=== PATIENT | female | born 1960 | race Caucasian/White ===

== ENCOUNTER 2019-12-11 00:53 | Outpatient (CLI) | payer BC, SELFPAY ==
[2019-12-11 18:38] LABS: SARS-CoV-2 RNA PCR Negative
== END 2019-12-11 00:54 | disposition home or self-care (01) ==
LOC: ANHCOVIDDT 00:54
PROVIDERS: PCP Family Medicine; Visit Provider Orthopaedic Surgery
DX: Z01.812 Encounter for preprocedural laboratory examination (principal); Z20.828 Contact with and (suspected) exposure to other viral communicable diseases
CPT/HCPCS: 87635; C9803; U0003

== ENCOUNTER 2019-12-13 01:37 | Day surgery (SDC) | payer BC, SELFPAY ==
[2019-12-04 09:50] VITALS: BMI 28.3
[2019-12-13] VITALS (7 sets, daily range): BP systolic 104–130; BP diastolic 66–82; PULSE 70–120; RESP 10–16; TEMP 36.7–36.8; O2SAT 92–96
[2019-12-13] MEDS: LACTATED RINGERS 1,000 ML 30 ML IV CONT ×2 (06:30→08:32)
[2019-12-13] MEDS: ACETAMINOPHEN 500 MG TABLET 1000 MG PO (06:34)
[2019-12-13] MEDS: KETOROLAC 15 MG/ML VIAL (*BKC) IV PUSH (06:35)
--- NOTE | 2019-12-13 07:11 | WPDANESEPPF ---
Anes - Initial Pre Proc Eval Procedure: Operation Date: 12/13/19 07:30 Proposed Procedures p Left Shoulder Arthroscopic Subacromial Decompression, Proceed As Indicated - Adonis Traore MD Date/Time: 12/13/19 07:11 Surgeon: Adonis Traore MD Pre Op Diagnosis: Impingement Syndrome and Tendonitis Left Shoulder Patient Data Age: 59 Gender: F Height: 5 ft 3 in Weight: 73.9 kg Last Vital Signs Temp 36.7 C 12/13/19 06:17 Pulse 70 12/13/19 06:17 Resp 16 12/13/19 06:17 BP 130/68 12/13/19 06:17 Pulse Ox 95 12/13/19 06:17 Allergies Allergy/AdvReac Type Severity Reaction Status Date / Time Gadolinium-Containing Allergy Severe Hives Verified 12/13/19 07:08 Contrast Medi minocycline Allergy Severe Hives Verified 12/13/19 07:08 tetracycline Allergy Mild HIVES Verified 12/13/19 07:08 Home Medications Medication Instructions Recorded Confirmed Type ascorbic acid (vitamin C) 1,000 mg 1 gm PO DAILY 04/19/19 12/04/19 History tablet fluoxetine 10 mg capsule 30 mg PO DAILY cap 04/19/19 12/04/19 History vufothmwmjfu-kihudqwe-bggke acid 1 cap PO DAILY 04/19/19 12/04/19 History 400 mcg-vitamin K 80 mcg capsule omega-3 1,050 yu-iux-ues-dpa-fish 1 cap PO DAILY 04/19/19 12/04/19 History oil 1,200 mg capsule vitamin E 400 unit capsule 400 unit PO DAILY 04/19/19 12/04/19 History bupropion HCl 75 mg tablet 75 mg PO BID tablet 08/16/19 12/04/19 History estradiol 1 mg tablet 1.5 mg PO DAILY tablet 08/16/19 12/04/19 History naproxen 375 mg tablet,delayed 375 mg PO BID PRN #60 tablet 08/16/19 12/04/19 Rx release levothyroxine 25 mcg tablet 25 mcg PO DAILY #90 tablet 10/21/19 12/04/19 Rx phentermine 37.5 mg capsule 37.5 mg PO DAILY #30 cap 11/14/19 12/04/19 Rx cyanocobalamin (vitamin B-12) 1,000 mcg PO DAILY 12/04/19 12/04/19 History [Vitamin B-12] magnesium 1 cap PO DIRECTED PRN 12/04/19 12/04/19 History Patient hx anesthesia problems: none Family hx anesthesia problems: none PMFSH Past Medical History Medical History Cervical stenosis of spinal canal Elevated TSH History of endometriosis cyst on ovary Hyperlipidemia Surgical History Surgical History History of back surgery History of discectomy C4-C6 - with Fusion History of hysterectomy History of tonsillectomy Family History Family History Mother Diabetes mellitus Carcinoma of colon Sibling Diabetes mellitus Family history of lymphoma Father Hypertension Acute myocardial infarction Grandparent Family history of rheumatoid arthritis Acute myocardial infarction Social History Social History Years smoked: 7 Smoking status: Current every day smoker Tobacco type: cigarettes Second hand tobacco smoke exposure: No Smoking end date: 07/15/99 Alcohol intake: current Drinks per week: 6 Spiritual care concerns: No Anes - Eval Final PreProcedure Day of Procedure 12/13/19 07:11 Patient weight: overweight Heart: regular rate and rhythm Lungs: decreased breath sounds Airway: Mallampati scale class II Neurological: alert and oriented Last oral intake: >/= 8 hours ASA classification: III Emergent: no Anesthetic plan: proceed Anesthesia type and monitoring: general ETT and standard monitoring Informed Consent: The patient's anesthetic plan and its attendant risks and benefits were discussed with the patient/family/POA. Questions were solicited and answers provided to the satisfaction of the patient/family/POA.
--- NOTE | 2019-12-13 07:23 | WPDHPUPDATE1 ---
History and Physical Update Update Date/Time: 12/13/19 07:23 History and Physical has been reviewed, including an updated exam of the patient. There are NO changes in the patient's condition. Risks, benefits, and alternatives have been discussed and questions answered. Patient agrees to proceed with procedure.
--- NOTE | 2019-12-13 07:30 | WPDANESPNB ---
Anes - Peripheral Nerve Block Date/Time: 12/13/19 07:30 I have discussed with the patient/family/POA the placement of a peripheral nerve block for post-operative pain management, including associated risks, benefits, complications, and side effects. Alternative methods of post-operative analgesia were detailed. Questions were solicited and answers provided to the satisfaction of the patient/family/POA. Time-Out: A pre-procedural Time-Out was completed immediately before starting the procedure and confirmed: Patient Identification, Site, Procedure, Patient Position and the Availability of Requisite Equipment. Clinical Indications: Acute post-operative pain management requested by the operative surgeon. Nerve Block Insertion Note Anes-nerve block: interscalene left Needle: 22 gauge, stimulating, insulated echogenic needle. Needle length: 50 mm Technique: nerve stimulation lost at (mA) (0.3) and ultrasound Technique comment: mid2mg [id number] Injectate: bupivacaine 0.5% with epi 5 mcg/ml (30ml) and dexamethasone (mg) (4) Observations: tolerated well Complications: none Procedure start time:: 721 Procedure end time:: 729
[2019-12-13] MEDS: ceFAZolin 2 GM/D5W 50 ML 2 GM/50 ML BAG IVPB (07:33)
[2019-12-13] MEDS: METOPROLOL TARTRATE INJ 5 MG/5 ML VIAL 3 MG IV PUSH (10:12)
--- NOTE | 2019-12-13 13:41 | SUR.PHASEII ---
Patient informed staff that her white cloth (fabric) mask was missing. Staff searched the linens, stretchers, patient belongings and called the OR staff to look in OR 7 for it as well. Radiographer Technologist came to the patient's room and spoke to her about the misplacement of the mask as well. RN took down name and phone number of patient if it happens to get found. An incident report was filed also.
--- NOTE | 2019-12-14 10:24 | P.OP_ITS ---
Procedure Note - Detailed Date of procedure: 12/13/19 Pre-op diagnosis: Impingement Syndrome and Tendonitis Left Shoulder Post-op diagnosis: other (1. Impingement syndrome shoulder 2. Anterior labral degenerative tear.) Procedure performed: 1. Arthrosocopic labral debridement. 2. Arthroscopic subacromial decompression. Description of procedure: Arthroscopic debridement of a degenerative anterior labral tear and minimal chondroplasty. Evidence of significant subacromial impingement and bursitis. Subacromial decompression performed with complete bursectomy and acromioplasty. The remaining soft tissues and articular cartilage was normal other than hyperemia of the anterior cuff and biceps, consistent with impingement. Anesthesia: GETA and regional Surgeon: Adonis Traore MD Centrifugal Casting Machine Operator: Jackie Frankel PA-C Estimated blood loss (mL): 10 Complications: None Condition: stable Disposition: PACU Findings: Brief history: The patient complained of persistent pain with overhead and reaching activities. Pain persisted despite physical therapy and cortisone injections. Operative details: Patient was given an interscalene block in the holding area. Preoperative antibiotics were given. The patient was brought to the operating room. Careful positioning in the beach chair position was accomplished. The head neck were carefully positioned. The shoulder was examined. The shoulder w as prepped and draped in the usual sterile fashion. Standard posterior and anterior arthroscopic portals were established. The shoulder was inspected. The glenohumeral cartilage was normal. The anterior labrum showed degenerative tearing and some mild fraying of the anterior central margin of the glenoid cartilage. Gentle debridement was performed. The rotator cuff and biceps tendon showed hyperemia but no significant degeneration, tendinosis, or tearing. The subscapularis was also noted to be intact and appeared normal with the biceps sling. Attention was turned to the subacromial space. A complete bursectomy was performed. The bursa was significantly thickened and appeared pathologic. Evidence of fraying on the anterior rotator cuff and impingement on the coracoacromial ligament was observed. An accessory lateral portal was created. The acromion was clearly visualized. The coracoacromial ligament was released. Careful acromioplasty was performed utilizing views from both lateral and posterior. Loose bone fragments were carefully irrigated from the joint. The arthroscopic instruments were removed. The wounds were closed with interrupted 3-0 Monocryl suture followed by Steri-Strips. A sterile dressing was applied with a sling. The patient was extubated and brought to the recovery room in stable condition. There were no complications.
== END 2019-12-13 11:32 | disposition home or self-care (01) ==
PROVIDERS: PCP Family Medicine; Visit Provider Orthopaedic Surgery
PROC: (CPT 29805; principal; 2019-12-13 07:30)
DX: M75.42 Impingement syndrome of left shoulder (principal); M75.82 Other shoulder lesions, left shoulder; M75.52 Bursitis of left shoulder; G89.18 Other acute postprocedural pain; E78.5 Hyperlipidemia, unspecified; Z98.1 Arthrodesis status; F17.210 Nicotine dependence, cigarettes, uncomplicated
CPT/HCPCS: 29823; 64415; A4565; A9270; J0330; J0690; J1100; J1885; J2250; J2370; J2405; J2704; J7120

== ENCOUNTER 2020-03-26 12:58 | Outpatient (CLI) | payer BC, SELFPAY ==
--- NOTE | ~2020-03-26 | DEXA_ITS ---
Bone Density Report Name: Tanja Holman Age: 59 Sex: Female Ethnicity: White Date of : 1960 Indication: postmenopausal; height loss; hysterectomy; Referring Provider: Catina Hobson Study: Bone densitometry was performed. Exam Date: March 26, 2020 Accession number: [id number] Bone Density: Region BMD T-score Z-score Classification AP Spine (L1-L4) 1.248 1.8 3.4 Normal Femoral Neck (Left) 0.801 -0.4 0.9 Normal Total Hip (Left) 1.064 1.0 2.1 Normal Total Hip Bilateral Avg 1.042 0.8 1.9 Normal Femoral Neck (Right) 0.811 -0.3 1.0 Normal Total Hip (Right) 1.019 0.6 1.7 Normal World Health Organization criteria for BMD impression classify patients as: Normal (T-score at or above -1.0), Osteopenia (T-score between -1.0 and -2.5), or Osteoporosis (T-score at or below -2.5). 10-year Fracture Risk: FRAX not reported because: All T-scores for Spine Total, Hip Total, Femoral Neck at or above -1.0 Previous Exams: Region Exam Age BMD T-score BMD Change BMD Change Date g/cm2 vs Baseline vs Previous AP Spine(L1-L4) 03/26/2020 59 1.248 1.8 0.101(8.8%)# 0.142(12.8%)# 08/05/2011 51 1.107 0.5 -0.041(-3.5%)# -0.041(-3.5%)# 05/12/2009 49 1.147 0.9 Total Hip(Left) 03/26/2020 59 1.064 1.0 0.042(4.1%)# 0.079(8.0%)# 08/05/2011 51 0.985 0.4 -0.037(-3.6%)# -0.037(-3.6%)# 05/12/2009 49 1.023 0.7 Total Hip(Right) 03/26/2020 59 1.019 0.6 -0.005(-0.5%)# 0.123(13.8%)08/05/2011 51 0.895 -0.4 -0.129(-12.6%) -0.129(-12.6%) 05/12/2009 49 1.024 0.7 *Denotes significance at 95% confidence level, LSC for AP Spine = 0.022 g/cm2, LSC for Total Hip = 0.027 g/cm2 Clinical Information Provided by Patient: Smokes Has used the following medications: HRT (i.e. estrogen/hormone therapy), Vitamin D Has the following medical conditions: Hysterectomy Patient maximum height was 63 Menopause Age: 40 No regular weight bearing exercise Onset of menses at age 11 Number of children 1 Impression: The patient has normal bone mass. The patient has risk factors, including: smoking. No significant bone loss was observed. Discussion: BONE DENSITY IS ABOVE THE MINIMUM DESIRABLE LEVEL AT ALL SKELETAL SITES TESTED. This patient?s bone mineral density is above the minimum desirable level (T-score -1.0 or better) at all sites measured. The patient should follow a healthful lifestyle (good nutrition with adequate calcium and vitamin D,
--- NOTE | ~2020-03-26 | MM_ITS ---
EXAMINATION: MM screening [facility] BI w anurag HISTORY: Screening TECHNIQUE: Craniocaudal and mediolateral oblique 3-D tomosynthesis images were obtained and synthetic 2-D images were generated. CAD analysis was submitted and interpreted. COMPARISON: Comparison to multiple prior studies sequentially, with oldest reviewed study dated 03/2014. BREAST PARENCHYMAL COMPOSITION: There are scattered areas of fibroglandular density. FINDINGS: There are stable benign-appearing right breast masses, characterized as cysts on prior ultr asound. There is no evidence of suspicious mass, calcification, or architectural distortion to sugges t malignancy in either breast. There has been no suspicious interval change. IMPRESSION: 1. No mammographic evidence of malignancy. 2. Recommend routine screening mammography in one year. BI-RADS Category 2: Benign finding(s). Reviewed, dictated and finalized at location A. ZINE GRINDER LOADER
== END 2020-03-26 12:59 | disposition home or self-care (01) ==
LOC: ANHIMG 13:02
PROVIDERS: PCP Family Medicine; Visit Provider Student in an Organized Health Care Education/Training Program
DX: Z12.31 Encounter for screening mammogram for malignant neoplasm of breast (principal); M48.02 Spinal stenosis, cervical region; R29.890 Loss of height
CPT/HCPCS: 77063; 77067; 77080

== ENCOUNTER 2020-05-13 16:34 | Outpatient (CLI) | payer BC, SELFPAY | END 2020-05-13 16:35 | disposition home or self-care (01) | LOC: ANHCOVIDVC 16:34 | PROVIDERS: PCP Family Medicine | DX: Z23 Encounter for immunization (principal) | CPT/HCPCS: 0001A; 91300 ==

== ENCOUNTER 2020-06-03 16:29 | Outpatient (CLI) | payer BC, SELFPAY | END 2020-06-03 16:30 | disposition home or self-care (01) | LOC: ANHCOVIDVC 16:29 | PROVIDERS: PCP Family Medicine | DX: Z23 Encounter for immunization (principal) | CPT/HCPCS: 0002A; 91300 ==

== ENCOUNTER 2020-08-25 02:06 | Day surgery (SDC) | payer BC, SELFPAY ==
[2020-08-11 11:40] VITALS: BMI 28.3
--- NOTE | 2020-08-25 11:04 | WPDHPUPDATE1 ---
History and Physical Update Update Date/Time: 08/25/20 11:04 History and Physical has been reviewed, including an updated exam of the patient. There are NO changes in the patient's condition. Risks, benefits, and alternatives have been discussed and questions answered. Patient agrees to proceed with procedure.
[2020-08-25 12:36] VITALS: BP 109/50; PULSE 87; RESP 18; TEMP 37.4; O2SAT 97
[2020-08-25] MEDS: LACTATED RINGERS 1,000 ML 30 ML IV CONT (13:00)
[2020-08-25] MEDS: ACETAMINOPHEN 500 MG TABLET 1000 MG PO (13:06)
[2020-08-25] MEDS: KETOROLAC 15 MG/ML VIAL (*BKC) IV PUSH (13:06)
--- NOTE | 2020-08-25 14:20 | WPDANESEPPF ---
Anes - Initial Pre Proc Eval Procedure: Operation Date: 08/25/20 14:30 Proposed Procedures p Right Carpal Tunnel Release - Adonis Traore MD Date/Time: 08/25/20 14:20 Surgeon: Adonis Traore MD Pre Op Diagnosis: carpal tunnel syndrome right wrist Patient Data Age: 60 Gender: F Height: 1.6 m Weight: 75 kg Last Vital Signs Temp 37.4 C 08/25/20 12:36 Pulse 87 08/25/20 12:36 Resp 18 08/25/20 12:36 BP 109/50 L 08/25/20 12:36 Pulse Ox 97 08/25/20 12:36 Allergies Allergy/AdvReac Type Severity Reaction Status Date / Time Gadolinium-Containing Allergy Severe Hives Verified 08/25/20 13:17 Contrast Medi minocycline Allergy Severe Hives Verified 08/25/20 13:17 tetracycline Allergy Mild HIVES Verified 08/25/20 13:17 Home Medications Medication Instructions Recorded Confirmed Type ascorbic acid (vitamin C) 1,000 mg 1 gm PO DAILY 04/19/19 08/25/20 History tablet hphzghagrfry-kcpvdxca-kqsis acid 1 cap PO DAILY 04/19/19 08/25/20 History 400 mcg-vitamin K 80 mcg capsule omega-3 1,050 dg-gno-voq-dpa-fish 1 cap PO DAILY 04/19/19 08/25/20 History oil 1,200 mg capsule vitamin E 400 unit capsule 400 unit PO DAILY 04/19/19 08/25/20 History cyanocobalamin (vitamin B-12) 1,000 mcg PO DAILY 12/04/19 08/25/20 History [Vitamin B-12] magnesium 1 cap PO DIRECTED PRN 12/04/19 08/25/20 History bupropion HCl 150 mg tablet,12 hr 150 mg PO BID #60 tablet 07/10/20 08/25/20 Rx sustained-release estradiol 1 mg tablet 1.5 mg PO DAILY #90 tablet 07/22/20 08/25/20 Rx Patient hx anesthesia problems: none Family hx anesthesia problems: none PMFSH Past Medical History Medical History Aftercare following surgery Borderline hypothyroidism Cervical stenosis of spinal canal Elevated TSH History of endometriosis cyst on ovary History of HPV infection History of vaginal delivery Hyperlipidemia Tobacco abuse Surgical History Surgical History History of back surgery History of dilation and curettage History of discectomy C4-C6 - with Fusion History of endometrial ablation History of hysterectomy History of laparoscopy History of shoulder surgery (~11/2019) History of tonsillectomy Family History Family History Mother Diabetes mellitus Carcinoma of colon Sibling Diabetes mellitus Family history of lymphoma Father Hypertension Acute myocardial infarction Grandparent Family history of rheumatoid arthritis Acute myocardial infarction Social History Social History Years smoked: 7 Smoking status: Current every day smoker Tobacco type: cigarettes Second hand tobacco smoke exposure: No Smoking end date: 07/15/99 Alcohol intake: current Drinks per week: 5 Substance use: never Substance use type: does not use Living arrangements: with family Gender identity (if verbalized by the patient): Female Spiritual care concerns: No Anes - Eval Final PreProcedure Day of Procedure 08/25/20 14:20 Patient weight: overweight Heart: regular rate and rhythm Lungs: clear to auscultation Airway: Mallampati scale class II Neurological: alert and oriented Last oral intake: >/= 8 hours ASA classification: III Emergent: no Anesthetic plan: proceed Anesthesia type and monitoring: general GIVS and standard monitoring Informed Consent: The patient's anesthetic plan and its attendant risks and benefits were discussed with the patient/family/POA. Questions were solicited and answers provided to the satisfaction of the patient/family/POA.
[2020-08-25] MEDS: ceFAZolin 2 GM/D5W 50 ML 2 GM/50 ML BAG IVPB (14:52)
[2020-08-25] MEDS: BUPIVACAINE/EPINEPHRINE 0.5% 10 ML VIAL 4 ML INFILTRATE (15:15)
[2020-08-25 15:25] VITALS: BP 96/57; PULSE 82; RESP 14; O2SAT 93
[2020-08-25 15:55] VITALS: BP 94/62; PULSE 79; RESP 14; O2SAT 95
[2020-08-25 16:25] VITALS: BP 100/58; PULSE 69; RESP 14
--- NOTE | 2020-08-25 17:15 | W.PM.PROC2 ---
Procedure Note - Detailed Date of Procedure 08/25/20 Pre-op Diagnosis carpal tunnel syndrome right wrist Post-op Diagnosis same Procedure Performed Right Carpal tunnel release Surgeon Adonis Traore MD News Production Supervisor Jackie Frankel PA-C Anesthesia general Description of Procedure Operative details. After sedation was administer, the hand was prepped and draped in the usual sterile fashion. The proposed incision was marked using typical anatomic landmarks. 4ML 0.5% Marcaine with epinephrine was injected along the incision line and at the distal forearm. The limb was exsanguinated and the tourniquet inflated to 250 millimeters of mercury. A longitudinal incision was taken sharply. Dissection was brought down to the transverse carpal ligament. Under direct vision the ligament was incised sharply. The proximal release was carried out with dissection scissors. The contents of the carpal canal were protected with a [place] elevator. The transverse carpal ligament was confirmed to be widely patent. The wound was closed with interrupted 3-0 Prolene suture. Sterile bulky dressing applied. Patient brought to the recovery room in stable condition. Estimated Blood Loss 1 Pathology none sent Complications No immediate complications Condition stable Disposition PACU
== END 2020-08-25 16:34 | disposition home or self-care (01) ==
PROVIDERS: PCP Family Medicine; Visit Provider Orthopaedic Surgery
PROC: (CPT 64721; principal; 2020-08-25 14:30)
DX: G56.01 Carpal tunnel syndrome, right upper limb (principal); E78.5 Hyperlipidemia, unspecified; N80.1 Endometriosis of ovary; F17.210 Nicotine dependence, cigarettes, uncomplicated; R94.6 Abnormal results of thyroid function studies; Z87.42 Personal history of other diseases of the female genital tract; F12.90 Cannabis use, unspecified, uncomplicated
CPT/HCPCS: 64721; A9270; J0690; J1885; J2250; J2704; J3010; J7120

== ENCOUNTER 2021-04-08 17:35 | Outpatient (CLI) | payer BC, SELFPAY ==
--- NOTE | ~2021-04-08 | MM_ITS ---
EXAMINATION: MM screening [facility] BI w anurag HISTORY: Screening mammogram TECHNIQUE: Craniocaudal and mediolateral oblique 3-D tomosynthesis images were obtained and synthetic 2-D images were generated. CAD analysis was submitted and interpreted. COMPARISON: 03/26/2020, 03/15/2019, 02/21/2019 BREAST PARENCHYMAL COMPOSITION: There are scattered areas of fibroglandular density. FINDINGS: A cyst of the right breast is noted. There is no evidence of suspicious mass, calcification , or architectural distortion to suggest malignancy in either breast. There has been no suspicious in terval change. IMPRESSION: 1. No mammographic evidence of malignancy. 2. Recommend routine screening mammography in one year. BI-RADS Category 2: Benign finding(s). Reviewed, dictated and finalized at location A. ICAL SALES REPRESENTATIVE
== END 2021-04-08 17:36 | disposition home or self-care (01) ==
LOC: ANHIMG 17:37
PROVIDERS: PCP Family Medicine; Visit Provider Student in an Organized Health Care Education/Training Program
DX: Z12.31 Encounter for screening mammogram for malignant neoplasm of breast (principal)
CPT/HCPCS: 77063; 77067

== ENCOUNTER 2022-03-23 09:29 | Outpatient (CLI) | payer BC, SELFPAY ==
[2022-03-23 19:04] LABS: Anion Gap 7 mmol/L (8-16); Blood Urea Nitrogen 14 mg/dL (7-17); Calcium 9.1 mg/dL (8.4-10.2); Carbon Dioxide 28 mmol/L (22-30); Chloride 102 mmol/L (98-107); Estimated Glomerular Filt Rate > 60; Glucose 78 mg/dL (65-110); Potassium 4.2 mmol/L (3.4-5.0); Sodium 137 mmol/L (137-145)
== END 2022-03-23 09:30 | disposition home or self-care (01) ==
LOC: ANHBWCLAB 09:31
PROVIDERS: PCP Family Medicine; Referring Provider Orthopaedic Surgery; Visit Provider Anesthesiology
DX: E11.9 Type 2 diabetes mellitus without complications (principal); Z01.818 Encounter for other preprocedural examination
CPT/HCPCS: 36415; 80048

== ENCOUNTER 2022-04-01 00:10 | Day surgery (SDC) | payer BC, SELFPAY ==
[2022-03-22 09:46] VITALS: BMI 26.5
--- NOTE | 2022-03-22 09:57 | PC.NURSE ---
Report to the Outpatient Waiting Room, entrance under the green pavilion located off [facility], at time 10:00AM on date 04-01-22. Planned Procedure Time: 12:00PM. Time changes happen often and if your time is changed the preop area will call you the afternoon before. - You and your visitor will be asked to self-screen and do not enter if you have any COVID symptoms. - Only one visitor is requested with a max of two and NO children visitors are allowed at this time. - The patient visitor may be requested to leave or wait in car when not with patient due to distancing restrictions. - A mask is optional within the hospital at this time. Patients may have clear liquids (water, carbonated beverages, clear teas, apple juice) until 3 hours prior to surgery (09:00AM) with a maximum of 20 ounces. - No food from midnight until time of surgery Take the following medications with a SIP of water the morning of surgery: FLUOXETINE, BUPROPRION DO NOT STOP ANY OF YOUR OTHER PRESCRIPTION MEDICATIONS PRIOR TO SURGERY ?EXCEPT THE FOLLOWING Medications to discontinue per physician VITAMINS Date to take last dose 03-28-[address] VALDOVINOS OFFICE PATIENT STATES TO STOP ALEVE 7 DAYS BEFORE SURGERY Please no make-up, nail argentine, hairspray, perfume, deodorant, or body powder the day of surgery. No jewelry (including any body piercings) or valuables the day of surgery, leave them at home. Please take a shower or bath the night before, or the morning of, surgery with an antibacterial soap. Wear comfortable, loose fitting clothing. - Jewelry must be removed prior to entering the operating room. Rings and piercings that are not removed may be cut off. - The hospital will not accept responsibility for valuables. - Please leave all valuables, including medications, at home the day of surgery. If you are going home after surgery, a licensed regional tanker truck driver must drive you home. - NO public transportation without another adult if you receive anesthesia. - We recommend that an adult stay with you for 24 hours following discharge. - We also recommend that you do not drive, make important decision, drink alcoholic beverages, or take any drugs that were not prescribed by your health care provider for at least 24 hours after your discharge time. Follow any additional instructions given to you from your surgeon. If you or anyone in your household have experienced Covid symptoms in the past week, please notify your surgeon or the nurse liaison at the phone number below for possible testing. Telephone instructions given to PATIENT and asked if any additional questions and then verbalized understanding. Patient advised to call surgeon office or pre surgery nurse liaison [phone] if any additional questions.
[2022-04-01] VITALS (7 sets, daily range): BP systolic 103–117; BP diastolic 55–72; PULSE 80–90; RESP 12–16; TEMP 36.3–36.6; O2SAT 94–99
[2022-04-01] MEDS: ACETAMINOPHEN 500 MG TABLET 1000 MG PO (10:42)
[2022-04-01] MEDS: LACTATED RINGERS 1,000 ML 30 ML IV CONT ×2 (10:51→15:24)
[2022-04-01 10:58] LABS: Glucose Point of Care 87 mg/dl (65-105)
--- NOTE | 2022-04-01 11:02 | WPDANESEPPF ---
Anes - Initial Pre Proc Eval Procedure: Operation Date: 04/01/22 12:00 Proposed Procedures p Right Shoulder Arthroscopy, Rotator Cuff Repair, Subacromial Decompression, Proceed as Indicated - Adonis Traore MD Date/Time: 04/01/22 11:02 Surgeon: Adonis Traore MD Pre Op Diagnosis: right rotator cuff tear Patient Data Age: 61 Gender: F Height: 1.6 m Weight: 68 kg Allergies Allergy/AdvReac Type Severity Reaction Status Date / Time Gadolinium-Containing Allergy Severe Hives Verified 04/01/22 10:39 Contrast Medi minocycline Allergy Severe Hives Verified 04/01/22 10:39 tetracycline Allergy Mild HIVES Verified 04/01/22 10:39 Home Medications Medication Instructions Recorded Confirmed Type ascorbic acid (vitamin C) 1,000 mg 1 gm PO DAILY 04/19/19 04/01/22 History tablet (Vitamin C) spmeysrbbdkr-dglqhktk-wyzab acid 1 cap PO DAILY 04/19/19 04/01/22 History 400 mcg-vitamin K 80 mcg capsule (Multi For Her 50 Plus) omega-3 1,050 wk-jvz-aqa-dpa-fish 1 cap PO DAILY 04/19/19 04/01/22 History oil 1,200 mg capsule (Bath-3 2100) vitamin E 268 mg (400 unit) capsule 400 unit PO DAILY 04/19/19 04/01/22 History cyanocobalamin (vitamin B-12) 1,000 mcg PO DAILY 12/04/19 04/01/22 History 1,000 mcg tablet (Vitamin B-12) magnesium 1 cap PO DIRECTED PRN 12/04/19 04/01/22 History Constipation bupropion HCl 150 mg tablet,12 hr 150 mg PO BID #180 tabs 11/03/21 04/01/22 Rx sustained-release (Wellbutrin SR) fluoxetine 10 mg capsule 30 mg PO DAILY #270 caps 11/03/21 04/01/22 Rx cholecalciferol (vitamin D3) 25 25 mcg PO DAILY 12/03/21 04/01/22 History mcg (1,000 unit) capsule zinc gluconate 30 mg tablet 30 mg PO DAILY 12/03/21 04/01/22 History estradiol 1 mg tablet 1.5 mg PO DAILY #90 tabs 12/24/21 04/01/22 Rx pen needle, diabetic 32 gauge x #50 ea 12/27/21 03/09/22 Rx (Comfort EZ Pen [place]) tirzepatide 10 mg/0.5 mL 10 mg (0.5 mL) subcut WEEKLY #2 mL 03/18/22 04/01/22 Rx subcutaneous pen injector Laboratory Tests 04/01/22 10:53 POC Capillary Glucose 87 mg/dl mg/dl (65-105) Patient hx anesthesia problems: none Family hx anesthesia problems: none Results Review: All pre-operative results and documents have been reviewed as part of the pre-operative evaluation. [facility] Past Medical History Medical History Aftercare following surgery Borderline hypothyroidism Carpal tunnel syndrome of left wrist Cervical stenosis of spinal canal Elevated TSH History of endometriosis cyst on ovary History of HPV infection History of vaginal delivery Hyperlipidemia Tobacco abuse Surgical History Surgical History History of back surgery History of carpal tunnel release Right wrist 04/19 History of dilation and curettage History of discectomy C4-C6 - with Fusion History of endometrial ablation History of hysterectomy History of laparoscopy History of shoulder surgery (~11/2019) History of tonsillectomy Family History Family History Mother Diabetes mellitus Carcinoma of colon Sibling Diabetes mellitus Family history of lymphoma Father Hypertension Acute myocardial infarction Grandparent Family history of rheumatoid arthritis Acute myocardial infarction Social History Social History Years smoked: 20 Smoking status: Former smoker Tobacco type: cigarettes Second hand tobacco smoke exposure: No Smoking end date: 11/27/21 Alcohol intake: current Drinks per week: 2 Alcohol use details: socially Substance use: never Substance use type: does not use Lack of Transportation: No Lack of Food: Never True Current Housing: I Have Housing Concerned About Future Housing: No Difficulty Paying Gas/Electr
[2022-04-01] MEDS: KETOROLAC 15 MG/ML VIAL (*BKC) IV PUSH (11:23)
--- NOTE | 2022-04-01 12:18 | WPDHPUPDATE1 ---
History and Physical Update Update Date/Time: 04/01/22 12:18 History and Physical has been reviewed, including an updated exam of the patient. There are NO changes in the patient's condition. Risks, benefits, and alternatives have been discussed and questions answered. Patient agrees to proceed with procedure.
--- NOTE | 2022-04-01 12:31 | WPDANESPNB ---
Anes - Peripheral Nerve Block Date/Time: 04/01/22 12:31 I have discussed with the patient/family/POA the placement of a peripheral nerve block for post-operative pain management, including associated risks, benefits, complications, and side effects. Alternative methods of post-operative analgesia were detailed. Questions were solicited and answers provided to the satisfaction of the patient/family/POA. Time-Out: A pre-procedural Time-Out was completed immediately before starting the procedure and confirmed: Patient Identification, Site, Procedure, Patient Position and the Availability of Requisite Equipment. Clinical Indications: Acute post-operative pain management requested by the operative surgeon. Nerve Block Insertion Note Anes-nerve block: interscalene right Patient position: supine Skin prep: chlorhexidine Needle: 22 gauge, stimulating, insulated echogenic needle. Needle length: 50 mm Technique: ultrasound Injectate: bupivacaine 0.5% with epi 5 mcg/ml (30cc- no epi) Observations: tolerated well Complications: none Procedure start time:: 1227 Procedure end time:: 1230
[2022-04-01] MEDS: ceFAZolin 2 GM/D5W 50 ML 2 GM/50 ML BAG IVPB (12:32)
[2022-04-01 15:36] LABS: Glucose Point of Care 91 mg/dl (65-105)
--- NOTE | 2022-04-01 17:30 | W.PM.PROC2 ---
Procedure Note - Detailed Date of Procedure 04/01/22 Pre-op Diagnosis Right shoulder rotator cuff tear. Post-op Diagnosis Other (1. Rotator cuff tear (complete supraspinatus and partial subscapularis) 2. Subacromial impingement 3. Biceps tendinosis ) Procedure Performed Right shoulder 1. Arthroscopic rotator cuff repair 2. Arthroscopic subacromial decompression 3. Arthroscopic biceps tenodesis Surgeon Adonis Traore MD Heating [employer] Conditioning Mechanic Jackie Girard PA-C Anesthesia General and Regional ( interscalene block) Findings Complete crescent type supraspinatus tear without significant retraction. Some delamination. Partial-thickness delamination tear of the upper subscapularis. Significant biceps hyperemia when drawn into the joint for inspection. No significant degenerative changes. Evidence for subacromial impingement. Significantly thickened bursa. Biceps tenodesis and subscapularis repaired with a SwiveLock anchor and loop and tack for the biceps, and knotless mattress suture for the subscapularis. Supraspinatus repaired with double row construct using knotless medial compression. Care taken to include the delaminated supraspinatus in the repair. Description of Procedure Preoperative antibiotics were given. An interscalene block was administered in the preoperative area. The patient was bought brought to the operating room. A general anesthetic was administered. The patient was carefully positioned in the beach chair position. The head and neck were carefully positioned. The non operative extremity was also carefully positioned. The shoulder was prepped and draped in the usual sterile fashion. Examination was performed. Standard posterior and anterior arthroscopic portals were established. Inflow achieved with the arthroscopic pump using saline and epinephrine. The glenohumeral joint was carefully inspected. The subscapularis was peeling off of the upper attachment point. The biceps was significantly hyperemic when pulled into the joint. Mild degenerative fraying of the superior posterior labrum. Loop and tack repair of the biceps performed after releasing from the superior labrum. The subscapularis repair incorporated with mattress suture. Excellent anatomic reconstruction obtained. Attention was turned to the subacromial space. A complete bursectomy was performed. The rotator cuff and footprint were lightly debrided. A modest acromioplasty was performed. The tear configuration was carefully assessed. At this point, 2 knotless all suture anchors were placed at the medial row. Sutures were passed and the medial row locking knotless suture configuration was performed. The additional 2 sutures were brought through the tendon more medially and centrally. These were brought laterally into a double row construct with SwiveLock anchors. The repair was nicely anatomic and secure. The arthroscopic instruments were removed. The wounds were closed with 3-0 Monocryl subcuticular suture and steri strips. There were no complications. A sling was applied and the patient brought to the recovery room. Physician assistant professor of marine biology, Jackie Girard PA-C, required for surgery; including patient positioning, draping, arthroscopic camera operation, maintaining instrument position, suture retrieval, wound closure, and dressing and sling placement. Implants Ar[employer]rex SwiveLock anchors x3. All suture rotator cuff locking anchors medial. Loop and tack system for the biceps repair. Estimated Blood Loss -10.0 Pathology None sent Complications No immediate complications Condition Stable Disposition PACU [facility] Billing Surgery - Charge Forward: Surgery Billing
== END 2022-04-01 16:57 | disposition home or self-care (01) ==
PROVIDERS: PCP Family Medicine; Visit Provider Orthopaedic Surgery
PROC: (CPT 29805; principal; 2022-04-01 12:00)
DX: M75.121 Complete rotator cuff tear or rupture of right shoulder, not specified as traumatic (principal); M75.21 Bicipital tendinitis, right shoulder; M75.41 Impingement syndrome of right shoulder; G89.18 Other acute postprocedural pain; Z79.899 Other long term (current) drug therapy; Z98.1 Arthrodesis status; Z87.891 Personal history of nicotine dependence
CPT/HCPCS: 29827; 29828; 29826; 64415; 82948; A4565; A9270; C1713; J0330; J0690; J1100; J1885; J2250; J2370; J2405; J2704; J3010; J7120

== ENCOUNTER 2022-05-26 17:38 | Outpatient (CLI) | payer BC, SELFPAY ==
--- NOTE | ~2022-05-26 | MM_ITS ---
EXAMINATION: MM screening [facility] BI w anurag HISTORY: Screening TECHNIQUE: Craniocaudal and mediolateral oblique 3-D tomosynthesis images were obtained and synthetic 2-D images were generated. CAD analysis was submitted and interpreted. COMPARISON: Comparison to multiple prior studies sequentially, with oldest reviewed study dated 01/27. BREAST PARENCHYMAL COMPOSITION: Breast composed of scattered areas of fibroglandular density FINDINGS: There are developing nodular asymmetries laterally in both breasts on CC view use. There ar e no suspicious clustered calcifications or architectural distortion. IMPRESSION: 1. Developing nodular asymmetries laterally in both breasts on CC view. 2. Additional mammographic views and possible breast ultrasound are recommended. BI-RADS Category 0: Incomplete: Needs additional imaging evaluation. Reviewed, dictated and finalized at location A. IMPRESSION: 1. Developing nodular asymmetries laterally in both breasts on CC view. 2. Additional mammographic views and possible breast ultrasound are recommended . BI-RADS Category 0: Incomplete: Needs additional imaging evaluation.
== END 2022-05-26 17:39 | disposition home or self-care (01) ==
PROVIDERS: PCP Family Medicine; Visit Provider Obstetrics & Gynecology
DX: Z12.31 Encounter for screening mammogram for malignant neoplasm of breast (principal); R92.8 Other abnormal and inconclusive findings on diagnostic imaging of breast
CPT/HCPCS: 77063; 77067

== ENCOUNTER 2022-06-24 10:55 | Outpatient (CLI) | payer BC, SELFPAY ==
--- NOTE | ~2022-06-24 | MMUS_ITS ---
EXAMINATION: MM diagnostic [facility] BI w anurag, US breast BI limited HISTORY: Developing nodular asymmetries reported laterally in both breasts on screening craniocaudal views of 05/26/2022 TECHNIQUE: Additional 3-D tomosynthesis images of both breasts were performed and synthetic 2-D image s were generated. CAD analysis was submitted and interpreted. High resolution bilateral upper outer a nd lower-outer quadrant breast ultrasound was performed. COMPARISON: 05/26/2022, , 03/26/2020 bilateral screening mammogram examinations BREAST PARENCHYMAL COMPOSITION: There are scattered areas of fibroglandular density. FINDINGS: MAMMOGRAPHIC FINDINGS: There is mildly nodular fibroglandular stroma, most prominent focally in the outer mid right breast, which appears relatively stable since 03/26/2020. No reproducible suspicious mammographic mass or arch itectural distortion is detected. No malignant calcification, skin thickening or retraction. ULTRASOUND: Right breast: 9:00 3 cm from nipple: 4.5 x 8.2 x 7.4 mm clustered cysts or multiloculated cyst, without internal va scularity or posterior shadowing, benign in appearance No suspicious mass or shadowing or other significant sonographic abnormality of either breast is dete cted. IMPRESSION: 1. Benign finding 2. Routine annual mammographic screening is recommended BI-RADS Category 2: Benign finding(s). Reviewed, dictated and finalized at location A. IMPRESSION: 1. Benign finding 2. Routine annual mammographic screening is recommended BI-RADS Category 2: Benign finding(s).
== END 2022-06-24 10:56 | disposition home or self-care (01) ==
LOC: ANHIMG 10:56
PROVIDERS: PCP Family Medicine; Visit Provider Obstetrics & Gynecology
DX: R92.8 Other abnormal and inconclusive findings on diagnostic imaging of breast (principal)
CPT/HCPCS: 76642; 77062; 77066; G0279

== ENCOUNTER 2023-01-09 06:46 | Outpatient (CLI) | payer BC, SELFPAY ==
[2023-01-09 19:56] LABS: Appearance Urine Turbid (Clear); Bacteria Urine None Seen /hpf; Bilirubin Urine Negative (Negative); Blood Urine Negative (Negative); Calcium Oxalate Crystals Urine Present /hpf; Color Urine Dark Yellow (Yellow); Glucose Urine UA Negative (Negative); Ketones Urine Trace mg/dL (Negative); Leukocyte Esterase Ur Trace LEU/UL (Negative); Nitrate Urine Negative (Negative); Protein Urine Trace mg/dL (Negative); RBC Urine 0-2 /hpf (0-2); Specific Grav Ur 1.023 (1.001-1.035); Squamous Epithelial Cell Urine Moderate /hpf (Few); pH Urine 5.5 (5.0-9.0)
[2023-01-09 20:01] LABS: Add Urine Microscopic? YES
== END 2023-01-09 06:47 | disposition home or self-care (01) ==
LOC: ANHBWCLAB 06:48
PROVIDERS: PCP Family Medicine; Visit Provider Physician Assistant
DX: R30.0 Dysuria (principal)
CPT/HCPCS: 81001; 87086; 87088

== ENCOUNTER 2023-07-31 08:55 | Outpatient (CLI) | payer BC, SELFPAY ==
[2023-07-31 19:40] LABS: Alanine Aminotransferase 33 U/L (6-35); Albumin Level 4.2 g/dL (3.5-5.1); Alkaline Phosphatase 67 U/L (38-126); Anion Gap 7 mmol/L (4-12); Aspartate Amino Transferase 50 U/L (14-36); Bilirubin,Total 0.4 mg/dL (0.2-1.3); Blood Urea Nitrogen 19 mg/dL (7-17); Calcium 8.8 mg/dL (8.4-10.2); Carbon Dioxide 25 mmol/L (22-30); Chloride 105 mmol/L (98-107); Cholesterol 209 mg/dL (0-200); Estimated Glomerular Filt Rate > 60; Glucose 96 mg/dL (65-110); HDL Direct 77 mg/dL; Potassium 4.4 mmol/L (3.4-5.0); Sodium 137 mmol/L (137-145); Triglycerides 240 mg/dL (<150); Vitamin D 25 Hydroxy 37.8 ng/mL
[2023-07-31 19:51] LABS: LDL Cholesterol Direct 108 mg/dL
== END 2023-07-31 08:56 | disposition home or self-care (01) ==
PROVIDERS: PCP Family Medicine; Visit Provider Family Medicine
DX: Z00.00 Encounter for general adult medical examination without abnormal findings (principal); E78.2 Mixed hyperlipidemia; E55.9 Vitamin D deficiency, unspecified
CPT/HCPCS: 36415; 80053; 80061; 82306

== ENCOUNTER 2023-08-28 14:00 | Outpatient (CLI) | payer BC, SELFPAY ==
--- NOTE | ~2023-08-28 | MM_ITS ---
EXAMINATION: MM screening [facility] BI w anurag HISTORY: Screening mammogram TECHNIQUE: Craniocaudal and mediolateral oblique 3-D tomosynthesis images were obtained and synthetic 2-D images were generated. CAD analysis was submitted and interpreted. COMPARISON: 05/26/2022, 04/08/2021, 03/26/2020 BREAST PARENCHYMAL COMPOSITION:Not Dense. There are scattered areas of fibroglandular density. FINDINGS: No suspicious mass, calcification, or architectural distortion are identified in either edwardo ast to suggest malignancy. There has been no suspicious interval change. IMPRESSION: No mammographic evidence of malignancy. Recommend routine screening mammography in one year. BI-RADS Category 1: Negative Reviewed, dictated and finalized at location .
--- NOTE | ~2023-08-28 | DEXA_ITS ---
? Bone Density Report? Name:? RAVINDER BARKLEY Patient ID:??? [id number] Age:? 63 Sex:? Female Ethnicity:? White Date of : 1960 Indication: postmenopausal; screening for osteoporosis; history of glucocorticoids; hysterectomy; Referring Provider: SHARYN CHANEL Study: Bone densitometry was performed. Exam Date: August 28, 2023 Accession number: [id number] Bone Density: Region? BMD??? T-score? Z-score?? Classification AP Spine(L2, L3, L4)? 1.345??? 2.4?4.3? Normal Femoral Neck (Left)? 0.852??? 0.0? 1.6? Normal Total Hip (Left)? 1.043??? 0.8?2.1? Normal Femoral Neck (Right)? 0.827?? -0.2? 1.3? Normal Total Hip (Right)? 1.059??? 1.0? 2.2? Normal Femoral Neck Mean? 0.840?? -0.1? 1.4? Normal Total Hip Mean? 1.051??? 0.9? 2.1? Normal World Health Organization criteria for BMD impression classify patients as: Normal (T-score at or above -1.0), Osteopenia (T-score between -1.0 and -2.5), or Osteoporosis (T-score at or below -2.5). 10-year Fracture Risk: FRAX not reported because: ? All T-scores for Spine Total, Hip Total, Femoral Neck at or above -1.0 Clinical Information Provided by Patient: Has taken Glucocorticoids Has used the following medications: Vitamin D, Calcium Has the following medical conditions: Hysterectomy Patient maximum height was 63.0 Menopause Age: 33 No regular weight bearing exercise Drinks caffeinated beverages Onset of menses at age 10 Number of children 1 Impression: The patient has normal bone mass. The patient has risk factors, including: history of glucocorticoid therapy. Discussion: BONE DENSITY IS ABOVE THE MINIMUM DESIRABLE LEVEL AT ALL SKELETAL SITES TESTED. This patient?s bone mineral density is above the minimum desirable level (T- score -1.0 or better) at all sites measured. The patient should follow a healthful lifestyle (good nutrition with adequate calcium and vitamin D, and appropriate weight-bearing exercise). Follow-Up: Consider repeating this study in 5 years or sooner if there is some new clinical indication. Reported by: Dr. Juan Verduzco on 09/04/2023 9:04:00 AM. [facility]
== END 2023-08-28 14:01 | disposition home or self-care (01) ==
LOC: CHSIMG 14:02
PROVIDERS: PCP Family Medicine; Visit Provider Nurse Practitioner Family
DX: Z12.31 Encounter for screening mammogram for malignant neoplasm of breast (principal); Z78.0 Asymptomatic menopausal state
CPT/HCPCS: 77063; 77067; 77080

== ENCOUNTER 2023-09-21 07:25 | Outpatient (CLI) | payer BC, SELFPAY ==
--- NOTE | ~2023-09-21 | XR_ITS ---
XR abdomen/kub 1V 09/21/2023 07:36 INDICATION: Abdominal pain and diarrhea TECHNIQUE: KUB COMPARISON: None FINDINGS: Bowel gas pattern is normal. There is no evidence of free air, mass, organomegaly, ascites or obstruction. No abnormal calculi are seen. The bones appear intact. There are pelvic phlebolith s. IMPRESSION: 1: No acute abdominal abnormality identified. Reviewed, dictated and finalized at location B.
== END 2023-09-21 07:26 | disposition home or self-care (01) ==
LOC: ANHBWCIMG 07:28
PROVIDERS: PCP Family Medicine; Visit Provider Nurse Practitioner Adult Health
DX: R10.9 Unspecified abdominal pain (principal)
CPT/HCPCS: 74018

== ENCOUNTER 2024-02-02 01:38 | Day surgery (SDC) | payer BC, SELFPAY ==
[2024-01-15 12:47] VITALS: BMI 21.9
[2024-02-02 06:21] VITALS: BP 107/55; PULSE 77; RESP 18; TEMP 36.1; O2SAT 99; BMI 22.8
[2024-02-02] MEDS: LACTATED RINGERS 1,000 ML 150 ML IV CONT (06:24)
--- NOTE | 2024-02-02 07:23 | P.PNAN_ITS ---
Anes - Initial Pre Proc Eval Procedure: Operation Date: 02/02/24 07:30 Proposed Procedures p Colonoscopy - Gee Saab MD Date/Time: 02/02/24 07:23 Surgeon: Gee Saab MD Pre Op Diagnosis: Personal hx. colon polyps Patient Data Age: 63 Gender: F Height: 1.6 m Weight: 58.5 kg Last Vital Signs Temp 96.9 F L 02/02/24 06:21 Pulse 77 02/02/24 06:21 Resp 18 02/02/24 06:21 BP 107/55 L 02/02/24 06:21 Pulse Ox 99 02/02/24 06:21 O2 Del Method Room Air 02/02/24 06:21 Allergies Allergy/AdvReac Type Severity Reaction Status Date / Time Gadolinium-Containing Allergy Severe Hives Verified 02/02/24 06:18 Contrast Medi minocycline Allergy Severe Hives Verified 02/02/24 06:18 tetracycline Allergy Mild HIVES Verified 02/02/24 06:18 Home Medications Medication Instructions Recorded Confirmed Type ascorbic acid (vitamin C) 1,000 mg 1 gm PO DAILY 04/19/19 02/02/24 History tablet (Vitamin C) fnkeljkrdhbg-dgnmzkxg-brtjs acid 1 cap PO DAILY 04/19/19 02/02/24 History 400 mcg-vitamin K 80 mcg capsule (Multi For Her 50 Plus) vitamin E 268 mg (400 unit) capsule 400 unit PO DAILY 04/19/19 02/02/24 History cyanocobalamin (vitamin B-12) 1,000 mcg PO DAILY 12/04/19 02/02/24 History 1,000 mcg tablet (Vitamin B-12) magnesium 1 cap PO DIRECTED PRN 12/04/19 02/02/24 History Constipation cholecalciferol (vitamin D3) 25 25 mcg PO DAILY 12/03/21 02/02/24 History mcg (1,000 unit) capsule zinc gluconate 30 mg tablet 30 mg PO DAILY 12/03/21 02/02/24 History omega-3 1,050 df-glj-rvd-dpa-fish 1 cap PO BID #60 caps 05/19/23 02/02/24 Rx oil 1,200 mg capsule ([place]-3 2100) lutein 20 mg capsule 20 mg PO DAILY 07/28/23 02/02/24 History estradiol 1 mg tablet 1.5 mg PO DAILY 90 days #135 tabs 08/17/23 02/02/24 Rx biotin 10,000 mg PO BID 01/15/24 02/02/24 History semaglutide (weight loss) 2.4 7.5 mg subcut WEEKLY 01/15/24 02/02/24 History mg/0.75 mL subcutaneous pen injector (Wegovy) bupropion HCl 150 mg tablet,12 hr 150 mg PO DAILY #90 tabs 01/17/24 02/02/24 Rx sustained-release (Wellbutrin SR) fluoxetine 10 mg capsule 30 mg PO DAILY #270 caps 01/17/24 02/02/24 Rx Patient hx anesthesia problems: none Family hx anesthesia problems: none Results Review: All pre-operative results and documents have been reviewed as part of the pre- operative evaluation. [facility] Past Medical History Medical History Aftercare following surgery Borderline hypothyroidism Carpal tunnel syndrome of left wrist Cervical stenosis of spinal canal Elevated TSH History of endometriosis cyst on ovary History of HPV infection History of vaginal delivery Hyperlipidemia Tobacco abuse Surgical History Surgical History H/O repair of right rotator cuff (~04/01/22) Right shoulder Arthroscopic rotator cuff repair with subacromial decompression, biceps tenodesis History of back surgery History of carpal tunnel release Right wrist 04/19 History of dilation and curettage History of discectomy C4-C6 - with Fusion History of endometrial ablation History of hysterectomy History of laparoscopy History of shoulder surgery (~11/2019) History of tonsillectomy Family History Family History Mother Diabetes mellitus Carcinoma of colon Sibling Diabetes mellitus Family history of lymphoma Father Hypertension Acute myocardial infarction Grandparent Family history of rheumatoid arthritis Acute myocardial infarction Social History Social History Smoking packs per day: 1.5 Smoking cigarettes per day: 30.0 Years smoked: 35 Smoking pack-years: 52.50 Smoking status: Former smoker Tobacco type: cigarettes Second hand tobacco smoke exposure: No Smoking end date: 11/27/21 Alcohol intake: never Drinks per week: 2 Alcohol use details: socially Substance use: never Substance use type: does not use Lack of Transportation: No Lack of Food: Never True Current Housing: I Have Housing Concerned About Future Housing: No Difficulty Paying Gas/Electric Bills: No Difficulty Paying for Meds: No Currently Unemployed: No Education: Trade/Vocational Certificate Difficulty w/ Childcare or Family Care: No Living arrangements: alone Gender identity (if verbalized by the patient): Female Spiritual care concerns: No Anes - Eval Final PreProcedure Day of Procedure 02/02/24 07:23 Patient weight: normal Heart: regular rate and rhythm Lungs: clear to auscultation Airway: Mallampati scale class II Neurological: alert and oriented Last oral intake: >/= 8 hours ASA classification: I Emergent: no Anesthetic plan: proceed Anesthesia type and monitoring: general GIVS and standard monitoring Results Review: All pre-operative results and documents have been reviewed as part of the pre- operative evaluation. Healthy overall, can walk short distances, no cp or sob. Off wegovy for 13 days. Informed Consent: The patient's anesthetic plan and its attendant risks and benefits were discussed with the patient/family/POA. Questions were solicited and answers provided to the satisfaction of the patient/family/POA.
--- NOTE | 2024-02-02 07:32 | PM.HPGS ---
History of Present Illness History of Present Illness Consent: Risks, benefits, and alternatives have been discussed and questions answered. Patient agrees to proceed with procedure. Chief complaint: Personal hx. colon polyps Narrative: Tanja Holman is a 63 year old female with family history of colon cancer Review of Systems Review of Systems: All systems reviewed & are unremarkable except as noted in HPI and below PMFSH Past Medical History Medical History (Updated 02/02/24 @ 07:32 by Gee Saab MD) Aftercare following surgery Borderline hypothyroidism Carpal tunnel syndrome of left wrist Cervical stenosis of spinal canal Elevated TSH Family history of colon cancer in mother History of endometriosis cyst on ovary History of HPV infection History of vaginal delivery Hyperlipidemia Tobacco abuse Surgical History Surgical History H/O repair of right rotator cuff (~04/01/22) Right shoulder Arthroscopic rotator cuff repair with subacromial decompression, biceps tenodesis History of back surgery History of carpal tunnel release Right wrist 04/19 History of dilation and curettage History of discectomy C4-C6 - with Fusion History of endometrial ablation History of hysterectomy History of laparoscopy History of shoulder surgery (~11/2019) History of tonsillectomy Family History Family History Mother Diabetes mellitus Carcinoma of colon Sibling Diabetes mellitus Family history of lymphoma Father Hypertension Acute myocardial infarction Grandparent Family history of rheumatoid arthritis Acute myocardial infarction Social History Social History Smoking packs per day: 1.5 Smoking cigarettes per day: 30.0 Years smoked: 35 Smoking pack-years: 52.50 Smoking status: Former smoker Tobacco type: cigarettes Second hand tobacco smoke exposure: No Smoking end date: 11/27/21 Alcohol intake: never Drinks per week: 2 Alcohol use details: socially Substance use: never Substance use type: does not use Lack of Transportation: No Lack of Food: Never True Current Housing: I Have Housing Concerned About Future Housing: No Difficulty Paying Gas/Electric Bills: No Difficulty Paying for Meds: No Currently Unemployed: No Education: Trade/Vocational Certificate Difficulty w/ Childcare or Family Care: No Living arrangements: alone Gender identity (if verbalized by the patient): Female Spiritual care concerns: No Meds Home Medications and Allergies Home Medications Medication Instructions Recorded Confirmed Type ascorbic acid (vitamin C) 1,000 mg 1 gm PO DAILY 04/19/19 02/02/24 History tablet (Vitamin C) fwdrcgknsfts-wxflpcyg-tjtib acid 1 cap PO DAILY 04/19/19 02/02/24 History 400 mcg-vitamin K 80 mcg capsule (Multi For Her 50 Plus) vitamin E 268 mg (400 unit) capsule 400 unit PO DAILY 04/19/19 02/02/24 History cyanocobalamin (vitamin B-12) 1,000 mcg PO DAILY 12/04/19 02/02/24 History 1,000 mcg tablet (Vitamin B-12) magnesium 1 cap PO DIRECTED PRN 12/04/19 02/02/24 History Constipation cholecalciferol (vitamin D3) 25 25 mcg PO DAILY 12/03/21 02/02/24 History mcg (1,000 unit) capsule zinc gluconate 30 mg tablet 30 mg PO DAILY 12/03/21 02/02/24 History omega-3 1,050 if-dtt-vlq-dpa-fish 1 cap PO BID #60 caps 05/19/23 02/02/24 Rx oil 1,200 mg capsule ([place]-3 2100) lutein 20 mg capsule 20 mg PO DAILY 07/28/23 02/02/24 History estradiol 1 mg tablet 1.5 mg PO DAILY 90 days #135 tabs 08/17/23 02/02/24 Rx biotin 10,000 mg PO BID 01/15/24 02/02/24 History semaglutide (weight loss) 2.4 7.5 mg subcut WEEKLY 01/15/24 02/02/24 History mg/0.75 mL subcutaneous pen injector (Wegovy) bupropion HCl 150 mg tablet,12 hr 150 mg PO DAILY #90 tabs 01/17/24 02/02/24 Rx sustained-release (Wellbutrin SR) fluoxetine 10 mg capsule 30 mg PO DAILY #270 caps 01/17/24 02/02/24 Rx Allergies Allergy/AdvReac Type Severity Reaction Status Date / Time Gadolinium-Containing Allergy Severe Hives Verified 02/02/24 06:18 Contrast Medi minocycline Allergy Severe Hives Verified 02/02/24 06:18 tetracycline Allergy Mild HIVES Verified 02/02/24 06:18 Vital Signs Vital Signs - 24 hr 02/02/24 06:21 Temperature 96.9 F L Pulse Rate 77 Respiratory Rate 18 Blood Pressure 107/55 L Pulse Oximetry 99 Oxygen Delivery Room Air Exam Const: General: comfortable and no acute distress HENMT: Face/Nose/Sinus: Normal nares present Eyes: General: appearance normal, both eyes and all related structures Neck: Neck: no JVD Resp: Auscultation: clear to auscultation bilaterally Cardio: Rate: regular rate Rhythm: regular rhythm GI: Inspection: non-distended GI Palp: Yes Soft to palpation Skin: General skin exam: normal color Neuro: General: gait normal Speech: normal speech Extrem: General: normal to inspection Psych: Mental Status: mental status grossly normal Assessment and Plan Assessment and plan (1) Family history of colon cancer in mother: Code(s): Z80.0 - Family history of malignant neoplasm of digestive organs Status: Acute Assessment and Plan: colonoscopy
[2024-02-02 07:47] VITALS: BP 75/41; PULSE 80; RESP 20; O2SAT 96
[2024-02-02 07:53] VITALS: BP 97/61; PULSE 67; RESP 20; O2SAT 96
[2024-02-02 07:57] VITALS: BP 115/57; PULSE 73; RESP 18; O2SAT 98
[2024-02-02 08:01] VITALS: BP 94/58; PULSE 68; RESP 18; O2SAT 98
[2024-02-02 08:07] VITALS: BP 96/62; PULSE 70; RESP 20; O2SAT 98
== END 2024-02-02 08:27 | disposition home or self-care (01) ==
PROVIDERS: PCP Nurse Practitioner Adult Health; Referring Provider Family Medicine; Visit Provider Internal Medicine Gastroenterology
PROC: 0DJD8ZZ Inspection of Lower Intestinal Tract, Via Natural or Artificial Opening Endoscopic (ICD-10-PCS; CPT 45378; principal; 2024-02-02 07:30)
DX: Z12.11 Encounter for screening for malignant neoplasm of colon (principal); K64.8 Other hemorrhoids; K57.30 Diverticulosis of large intestine without perforation or abscess without bleeding; E78.5 Hyperlipidemia, unspecified; G56.02 Carpal tunnel syndrome, left upper limb; M48.02 Spinal stenosis, cervical region; E03.9 Hypothyroidism, unspecified; Z79.85 Long-term (current) use of injectable non-insulin antidiabetic drugs; Z98.890 Other specified postprocedural states; Z98.1 Arthrodesis status; Z86.0100 Personal history of colon polyps, unspecified; Z87.891 Personal history of nicotine dependence; Z87.42 Personal history of other diseases of the female genital tract; Z80.0 Family history of malignant neoplasm of digestive organs; Z80.7 Family history of other malignant neoplasms of lymphoid, hematopoietic and related tissues; Z82.49 Family history of ischemic heart disease and other diseases of the circulatory system
CPT/HCPCS: 45378; J2003; J2704; J7120

== ENCOUNTER 2024-07-23 13:19 | Outpatient (CLI) | payer BC, SELFPAY ==
--- OUTSIDE RECORDS SUMMARY | 2024-07-23 13:25 | XMS_ITS | Referral Summary ---
Author Organization [facility] Address [address] [facility] [address] [place] [address] Phone Care Team Providers Care Sales Representative [employer] Name Role Phone No, Physician Primary Care Provider [phone] Allergies No known active allergies Medications No known medications Active Problems No known active problems Social History Tobacco Use Types Packs/Day Years Used Date Smoking Tobacco: Never Assessed Personal Safety Answer Date Recorded Getting School Help Needed Not on file 05/01 Comments Unknown Sex and Gender Information Value Date Recorded Sex Assigned at Not on file Legal Sex Female 6:19 AM [employer] Gender Identity Not on file Sexual Orientation Not on file Plan of Treatment Not on file Insurance [facility] Care Teams Sales Representative [employer] Relationship Specialty Start Date End Date No, Physician PCP - General 05/13/22
--- OUTSIDE RECORDS SUMMARY | 2024-07-23 13:25 | XMS_ITS | Clinical Summary ---
Author Organization [facility] [place] Address [address] [place] [address] Phone Care Team Providers Care Comsec Manager Name Role Phone Sneha Denny MD Primary Care Provider [phone] Allergies Active Allergy Reactions Criticality Noted Date Comments Minocycline Hives High 04/22/2019 Medications estradiol (ESTRACE) 1 mg tablet Take 1 mg by mouth daily. 9 Active FLUoxetine (PROzac) 20 mg tablet Take 20 mg by mouth daily. Prescribed 30 mg, takes 20 mg Active buPROPion (WELLBUTRIN) 75 mg tablet Take 75 mg by mouth daily. Active omega-3 fatty acids (FISH OIL ORAL) Take 1 Tablet by mouth daily. Active multivitamin (DAILY-NESSA) tablet Take 1 Tablet by mouth daily. Active ascorbic acid (VITAMIN C ORAL) Take 1 Tablet by mouth daily. Active VITAMIN E ORAL Take 1 Tablet by mouth daily. Active HYDROcodone-acet aminophen (NORCO) 10-325 mg TabletIndication s:Cervical spondylosis Take 1 Tablet by mouth every 4 hours as needed for Pain. Max Daily Amount: 6 Tablets 40 Tablet 04/22/2019 1:14 PM KOSHER DIETARY SERVICE MANAGER 0 Active docusate sodium (Colace) 100 mg capsule Take 1 Capsule (100 mg) by mouth 2 times daily. 60 Capsule 6 04/22/2019 1:14 PM KOSHER DIETARY SERVICE MANAGER 0 Active Social History Tobacco Use Types Packs/Day Years Used Date Smoking Tobacco: Every Day Smokeless Tobacco: Never Comments:1-3 daily Alcohol Use Standard Drinks/Week Comments Yes 0 (1 standard drink = 0.6 oz pur e alcohol) weekends Comments No Sex and Gender Information Value Date Recorded Sex Assigned at Not on file Legal Sex Female 3:29 AM KOSHER DIETARY SERVICE MANAGER Gender Identity Not on file Sexual Orientation Not on file Last Filed Vital Signs Vital Sign Reading Time Taken Comments Blood Pressure 132/75 04/22/2019 1:35 PM KOSHER DIETARY SERVICE MANAGER Pulse 97 04/22/2019 1:35 PM KOSHER DIETARY SERVICE MANAGER Temperature 36.8 C (98.2 F) 04/22/2019 12:54 PM KOSHER DIETARY SERVICE MANAGER Respiratory Rate 17 04/22/2019 12:40 PM KOSHER DIETARY SERVICE MANAGER Oxygen Saturation 93% 04/22/2019 1:35 PM KOSHER DIETARY SERVICE MANAGER Inhaled Oxygen Concentration - - Weight 70.3 kg (155 lb) 04/22/2019 6:02 AM KOSHER DIETARY SERVICE MANAGER Height 160 cm (5' 3) 04/22/2019 6:02 AM KOSHER DIETARY SERVICE MANAGER Body Mass Index 27.46 04/22/2019 6:02 AM KOSHER DIETARY SERVICE MANAGER Plan of Treatment Health Maintenance Due Date Last Done Comments DTAP/TDAP/TD VACCINES (1 - Tdap) 1977 PNEUMOCOCCAL VACCINE 50+ YEARS (1 of 2 - PCV) 04/19/18 78 BREAST CANCER SCREENING 1998 COLORECTAL SCREENING 2003 Colorectal Cancer Screening 2003 FIT-DNA Q 3 years 2003 FIT/FOBT Q 1 year 2003 Flex Sig/CT Colonography Q 5 years 2003 ZOSTER VACCINE (1 of 2) 2008 OSTEOPOROSIS SCREENING 2023 INFLUENZA VACCINE (#1) 2023 RSV VACCINE (60+ or ) (1 - 1-dose 75+ series) 2033 Medical Devices Implanted Type Area Elementary Math Tutor Device Identifier Shelf Expiration Date Model / Serial / Lot Hemostatic Surgiflo 8ml W/Thrombin 2994 - [id number] Implanted:Qty : 1 on 04/22/2019 by Nitesh Foss MD at [facility] Hemostatic N/A: Spine Cervical Anterior J&J- ETHIC[employer] 01/27/2020 2994 / / [id number] Plate Atlnts Trnsltnl Acs 40.0mm [id number] - [id number] Implanted:Qty : 1 on 04/22/2019 by Nitesh Foss MD at [facility] Plate N/A: Spine Cervical Anterior [employer] [id number] / / Description:STERILIZATION # 200 [id number] APR [address] Va 4.0x15mm [id number] - [id number] Implanted:Qty : 6 on 04/22/2019 by Nitesh Foss MD at [facility] N/A: Spine Cervical Anterior [employer] [id number] / / Description:STERILIZATION # 200 [id number] APR 16 REQ#[id number] Paste Bone Dbm Plus 1ml [id number] - [id number] Implanted:Qty : 1 on 04/22/2019 by Nitesh Foss MD at [facility] N/A: Spine Cervical Anterior [employer] 01/12/2020 [id number] / [id number] / Description:REQ [id number] Bone Block Lascr [id number] - [id number] Implanted:Qty : 1 on 04/22/2019 by Nitesh Foss MD at [facility] N/A: Spine Cervical Anterior [employer] 07/25/2021 [id number] / [id number] / [id number] Description:REQ#[id number] Bone Block Lascr [id number] - [id number] Implanted:Qty : 1 on 04/22/2019 by Nitesh Foss MD at [facility] N/A: Spine Cervical Anterior [employer]K 12/12/2021 [id number] / [id number] / [id number] Insurance RX [facility] Advance Directives For more information, please contact: [phone] * Full Code (Latest Code Status on File) Date Activated Date Inactivated Comments 04/22/2019 6:38 AM 04/22/2019 4:36 PM Care Teams Comsec Manager Relationship Specialty Start Date End Date Sneha Denny MD [address] [address] PCP - General 02/13/15
--- OUTSIDE RECORDS SUMMARY | 2024-07-23 13:25 | XMS_ITS | Clinical Summary ---
Author Organization [facility] Address [address] [place] [address] Phone Care Team Providers Care Insurance Risk Surveyor Name Role Phone No, Physician Primary Care Provider [phone] Allergies No known active allergies Medications No known medications Active Problems No known active problems Social History Tobacco Use Types Packs/Day Years Used Date Smoking Tobacco: Never Assessed Personal Safety Answer Date Recorded Getting School Help Needed Not on file 05/01 Comments Unknown Sex and Gender Information Value Date Recorded Sex Assigned at Not on file Legal Sex Female 6:19 AM BEHAVIORAL INTERVENTION SPECIALIST Gender Identity Not on file Sexual Orientation Not on file Plan of Treatment Health Maintenance Due Date Last Done Comments Breast Cancer Screening-Mammogram 1958 Colon Cancer Screening-Colonoscopy 1958 Depression Screening 1958 Fall Risk Assessment 1958 Hepatitis C Screening 1958 Osteoporosis Screening-Bone Density Scan 1958 Pneumococcal vaccine 65+ (1 of 1 - PCV) 2008 Zoster Vaccine (3 of 3) 03/28/2022 02/01/20, 10/26/2021, 09/09/2010 Well Visit 65+ 2023 Covid-19 Vaccine ( season) 2023 10/12/2021, 06/03/2020, 05/13/2020 Influenza Vaccine (Season Ended) 2024 12/04/19, 12/15/2017 DTaP/Tdap/Td Vaccine (3 - Td or Tdap) 05/29/203102/2021, 08/27/2009 Hepatitis B Screening Completed 04/03/2009 , 11/07/2008, 10/08/2008 Insurance [facility] Care Teams Insurance Risk Surveyor Relationship Specialty Start Date End Date No, Physician PCP - General 05/13/22
--- OUTSIDE RECORDS SUMMARY | 2024-07-23 13:25 | XMS_ITS | Continuity of Care Document ---
Author Organization [facility] Address [address] [place] [address] Phone Care Team Providers Care General Warehouse Associate Name Role Phone Brian Palomo DO Unavailable Unavailable Advance Directives Directive Yes / No Effective Date File Name No Information Encounters Encounter Description Practice Location Reason(s) For Visit Diagnoses Date Provider Providers Copied on Encounter [facility], [address], [place], [place], [id number], [place] tel:[phone] [facility] No Information Dewey Ambrose. [address] [place], [address], [place]. tel:[phone] Referring Provider: Sneha Denny MD, [address], [address]. tel:[phone] Family History Family Member Type Diagnosis Age At Onset No Information Payers Payer name Insurance type Covered republican ID Authoriza tion(s) No Information Social History Type Description Quantity Date Captured Comments Sex Female Smoking Status No Information Chief Complaint And Reason For Visit No Information Reason For Referral Reason For Referral No Information History Of Present Illness Encounter Date Complaint History Of Prese nt Illness No Information Functional Status Date Functional Assessmen t No Information Instructions Date Instruction Additional Infor mation No Information Assessments Type Assessment Date No Information Patient Care Teams Name Effective Dates (start - stop) Status Members No Information
--- NOTE | 2024-07-23 14:00 | NEURO_ITS ---
Impression: # Complains of numbness of hands. Status post cervical spine surgery in the past. ? # Normal Nerve Conduction Study. ? # No Carpal Tunnel Syndrome or ulnar neuropathy. ? # Needle/EMG exam mildly neurogenic in proximal muscles compatible with previous neck surgery. ? # Clinical correlation recommended. Nerve Conduction Studies Anti Sensory Summary Table ?Stim Site NR Peak (ms) P-T Amp (?V) Site1 Site2 Delta-P (ms) Dist (cm) Deniz (m/s) Left Median Anti Sensory (2-3nd Digit) Wrist ? 3.6 41.5 Wrist 2-3nd Digit 3.6 14.0 39 Wrist ? 3.8 32.5 Wrist 2-3nd Digit 3.6 14.0 39 Right Median Anti Sensory (2-3nd Digit) Wrist ? 2.7 80.1 Wrist 2-3nd Digit 2.7 14.0 52 Wrist ? 2.9 51.1 Wrist 2-3nd Digit 2.7 14.0 52 Left Radial Anti Sensory (Base 1st Digit) Wrist ? 1.9 45.6 Wrist Base 1st Digit 1.9 0.0 Right Radial Anti Sensory (Base 1st Digit) Wrist ? 2.1 39.9 Wrist Base 1st Digit 2.1 0.0 Left Ulnar Anti Sensory (5th Digit) Wrist ? 2.2 85.4 Wrist 5th Digit 2.2 14.0 64 Right Ulnar Anti Sensory (5th Digit) Wrist ? 2.0 86.2 Wrist 5th Digit 2.0 14.0 70 Motor Summary Table ?Stim Site NR Onset (ms) O-P Amp (mV) Site1 Site2 Delta-0 (ms) Dist (cm) Deniz (m/s) Left Median Motor (Abd Poll Brev) Wrist ? 3.8 3.0 Elbow Wrist 4.2 25.0 60 Elbow ? 8.0 4.3 Right Median Motor (Abd Poll Brev) Wrist ? 2.9 5.5 Elbow Wrist 4.1 26.0 63 Elbow ? 7.0 5.1 Left Ulnar Motor (Abd Dig Minimi) Wrist ? 2.1 7.0 A Elbow Wrist 4.2 26.0 62 A Elbow ? 6.3 7.0 B Elbow Wrist 3.0 18.0 60 B Elbow ? 5.1 8.0 Right Ulnar Motor (Abd Dig Minimi) Wrist ? 2.2 8.0 A Elbow Wrist 4.3 26.0 60 A Elbow ? 6.5 7.4 B Elbow Wrist 2.8 18.0 64 B Elbow ? 5.0 6.0 F Wave Studies ?NR F-Lat (ms) L-R F-Lat (ms) Left Median (Mrkrs) (Abd Poll Brev) ? 25.39 0.00 Right Median (Mrkrs) (Abd Poll Brev) ? 25.39 0.00 Left Ulnar (Mrkrs) (Abd Dig Min) ? 24.32 0.99 Right Ulnar (Mrkrs) (Abd Dig Min) ? 25.31 0.99 EMG ?Side Muscle Nerve Root Ins Act Fibs Amp Dur Recrt Comment Right 1stDorInt Ulnar C8-T1 Nml Nml Nml Nml Nml Right Ext Indicis Radial (Post Int) C7-8 Nml Nml Nml Nml Nml Right Ext Digitorum Radial (Post Int) C7-8 Nml Nml Nml Nml Nml Right BrachioRad Radial C5-6 Nml Nml Nml Nml Nml Right PronatorTeres Median C6-7 Nml Nml Nml Nml Nml Right Abd Poll Brev Median C8-T1 Nml Nml Nml Nml Nml Right ABD Dig Min Ulnar C8-T1 Nml Nml Nml Nml Nml Right FlexPolLong Median (Ant Int) C7-8 Nml Nml Nml Nml Nml Right Abd Poll Long Radial (Post Int) C7-8 Nml Nml Nml Nml Nml Left 1stDorInt Ulnar C8-T1 Nml Nml Nml Nml Nml Left Ext Indicis Radial (Post Int) C7-8 Nml Nml Nml Nml Nml Left Ext Digitorum Radial (Post Int) C7-8 Nml Nml Nml Nml Nml Left BrachioRad Radial C5-6 Nml Nml Nml Nml Nml Left PronatorTeres Median C6-7 Nml Nml Nml Nml Nml Left Abd Poll Brev Median C8-T1 Nml Nml Nml Nml Nml Left ABD Dig Min Ulnar C8-T1 Nml Nml Nml Nml Nml Left FlexPolLong Median (Ant Int) C7-8 Nml Nml Nml Nml Nml Left Abd Poll Long Radial (Post Int) C7-8 Nml Nml Nml Nml Nml Right Biceps Musculocut C5-6 Nml Nml Nml Nml +1 Right Triceps Radial C6-7-8 Nml Nml Nml Nml +1 Left Biceps Musculocut C5-6 Nml Nml Nml Nml +1 Left Triceps Radial C6-7-8 Nml Nml Nml Nml +1 ?
== END 2024-07-23 13:20 | disposition home or self-care (01) ==
PROVIDERS: PCP Nurse Practitioner Adult Health; Visit Provider Nurse Practitioner Adult Health
DX: R20.2 Paresthesia of skin (principal); Z98.890 Other specified postprocedural states
CPT/HCPCS: 95886; 95911

== ENCOUNTER 2024-08-07 08:26 | Outpatient (CLI) | payer BC, SELFPAY ==
--- OUTSIDE RECORDS SUMMARY | 2024-08-07 08:42 | XMS_ITS | Clinical Summary ---
Author Organization [facility] Address [address] [place] [address] Phone Care Team Providers Care House Designer Name Role Phone No, Physician Primary Care Provider [phone] Allergies No known active allergies Medications No known medications Active Problems No known active problems Social History Tobacco Use Types Packs/Day Years Used Date Smoking Tobacco: Never Assessed Personal Safety Answer Date Recorded Getting School Help Needed Not on file 05/01 Comments Unknown Sex and Gender Information Value Date Recorded Sex Assigned at Not on file Legal Sex Female 6:19 AM SQL DEVELOPER Gender Identity Not on file Sexual Orientation [...] Screening Completed 04/03/2009 , 11/07/2008, 10/08/2008 Insurance [facility] Care Teams House Designer Relationship Specialty Start Date End Date No, Physician PCP - General 05/13/22
--- OUTSIDE RECORDS SUMMARY | 2024-08-07 08:42 | XMS_ITS | Continuity of Care Document ---
Author Organization [facility] Address [address] [place] [address] Phone Care Team Providers Care Leather Crafter Name Role Phone Brian Palomo DO Unavailable Unavailable Advance Directives Directive Yes / No Effective Date File Name No Information Encounters Encounter Description Practice Location Reason(s) For Visit Diagnoses Date Provider Providers Copied on Encounter [facility], [address], [place], [place], [address], [place] tel:[phone] [facility] No Information Dweey Ambrose. [address] [place], [address], [place]. tel:[phone] Referring Provider: Sneha Denny MD, [address], [place], [address]. tel:[phone] Family History Family Member Type Diagnosis Age At Onset No Information Payers Payer name Insurance type Covered libertarian ID Authoriza tion(s) No Information Social History [...]
--- OUTSIDE RECORDS SUMMARY | 2024-08-07 08:42 | XMS_ITS | Clinical Summary ---
Author Organization [facility] [place] Address [address] [place] [address] Phone Care Team Providers Care Mobile Security Specialist Name Role Phone Sneha Denny MD Primary Care Provider [phone] Allergies Active Allergy Reactions Criticality Noted Date [...] 6 Tablets 40 Tablet 04/22/2019 1:14 PM FLEET SALES ASSOCIATE 0 Active docusate sodium (Colace) 100 mg capsule Take 1 Capsule (100 mg) by mouth 2 times daily. 60 Capsule 6 04/22/2019 1:14 PM FLEET SALES ASSOCIATE 0 Active Social History Tobacco Use Types Packs/Day Years Used Date Smoking Tobacco: Every Day Smokeless Tobacco: Never Comments:1-3 daily Alcohol Use Standard Drinks/Week Comments Yes 0 (1 standard drink = 0.6 oz pur e alcohol) weekends Comments No Sex and Gender Information Value Date Recorded Sex Assigned at Not on file Legal Sex Female 3:29 AM FLEET SALES ASSOCIATE Gender Identity Not on file Sexual Orientation Not on file Last Filed Vital Signs Vital Sign Reading Time Taken Comments Blood Pressure 132/75 04/22/2019 1:35 PM FLEET SALES ASSOCIATE Pulse 97 04/22/2019 1:35 PM FLEET SALES ASSOCIATE Temperature 36.8 C (98.2 F) 04/22/2019 12:54 PM FLEET SALES ASSOCIATE Respiratory Rate 17 04/22/2019 12:40 PM FLEET SALES ASSOCIATE Oxygen Saturation 93% 04/22/2019 1:35 PM FLEET SALES ASSOCIATE Inhaled Oxygen Concentration - - Weight 70.3 kg (155 lb) 04/22/2019 6:02 AM FLEET SALES ASSOCIATE Height 160 cm (5' 3) 04/22/2019 6:02 AM FLEET SALES ASSOCIATE Body Mass Index 27.46 04/22/2019 6:02 AM FLEET SALES ASSOCIATE Plan of Treatment Health Maintenance Due Date [...] series) 2033 Medical Devices Implanted Type Area Assistant Sales Center Manager Device Identifier Shelf Expiration Date Model / Serial / Lot Hemostatic Surgiflo 8ml W/Thrombin 2994 - [id number] Implanted:Qty : 1 on 04/22/2019 by Nitesh Foss MD at [facility] Hemostatic N/A: Spine Cervical Anterior [employer]J- [employer] 01/27/2020 2994 / / [id number] Plate Atlnts Trnsltnl Acs 40.0mm [id number] - [id number] Implanted:Qty : 1 on 04/22/2019 by Nitesh Foss MD at [facility] Plate N/A: Spine Cervical Anterior [employer] [id number] / / Description:STERILIZATION # 200 [address] APR [address] Va 4.0x15mm [id number] - [id number] Implanted:Qty : 6 on 04/22/2019 by Nitesh Foss MD at [facility] N/A: Spine Cervical Anterior [employer] [id number] / / Description:STERILIZATION # 200 04869 APR 16 REQ#[id number] Paste Bone Dbm Plus 1ml [id number] - [id number] Implanted:Qty : 1 on 04/22/2019 by Nitesh Foss MD at [facility] N/A: Spine Cervical Anterior [employer] 01/12/2020 [id number] / [id number] / Description:REQ [id number] Bone Block Lascr [id number] - [id number] Implanted:Qty : 1 on 04/22/2019 by Nitesh Foss MD at [facility] N/A: Spine Cervical Anterior [employer] 07/25/2021 [id number] / [id number] / [id number] Description:REQ#[id number] Bone Block Lascr [id number] - [id number] Implanted:Qty : 1 on 04/22/2019 by Nitesh Foss MD at [facility] N/A: Spine Cervical Anterior [employer] 12/12/2021 [id number] / [id number] / [id number] Insurance RX [facility] Advance Directives For more information, please contact: [phone] * Full Code (Latest Code Status on File) Date Activated Date Inactivated Comments 04/22/2019 6:38 AM 04/22/2019 4:36 PM Care Teams Mobile Security Specialist Relationship Specialty Start Date End Date Sneha Denny MD [address] [address] PCP - General 02/13/15
--- OUTSIDE RECORDS SUMMARY | 2024-08-07 08:42 | XMS_ITS | Referral Summary ---
Author Organization [facility] Address [address] [facility] [address] [place] [address] Phone Care Team Providers Care Roll Carrier Name Role Phone No, Physician Primary Care Provider [phone] Allergies No known active allergies Medications No known medications Active Problems No known active problems Social History Tobacco Use Types Packs/Day Years Used Date Smoking Tobacco: Never Assessed Personal Safety Answer Date Recorded Getting School Help Needed Not on file 05/01 Comments Unknown Sex and Gender Information Value Date Recorded Sex Assigned at Not on file Legal Sex Female 6:19 AM CHAIN TESTING MACHINE OPERATOR Gender Identity Not on file Sexual Orientation Not on file Plan of Treatment Not on file Insurance [facility] Care Teams Roll Carrier Relationship Specialty Start Date End Date No, Physician PCP - General 05/13/22
[2024-08-07 19:45] LABS: Basophils Percent Auto 0.6 % (0.2-1.2); Eosinophils Absolute Auto 0.1 K/mm3 (0-0.3); Hematocrit 42.2 % (37.0-47.0); Hemoglobin 13.3 g/dL (12.0-15.0); Immature Granulocyte Absolute 0.01 K/mm3 (0.00-0.031); Immature Granulocyte Percent A 0.2 % (0-0.5); Lymphocytes Absolute Auto 2.12 K/mm3 (0.9-3.2); Lymphocytes Percent Auto 32.9 % (18.3-44.2); Mean Corpuscular HGB Conc 31.5 g/dl (32-36); Mean Corpuscular Hemoglobin 29.7 pg (26-34); Mean Corpuscular Volume 94.2 fl (80-100); Mean Platelet Volume 10.2 fl (7.4-10.4); Monocytes Absolute Auto 0.7 K/mm3 (0.1-0.6); Monocytes Percent Auto 11.3 % (2.6-8.5); Neutrophils Absolute Auto 3.4 K/mm3 (1.3-6.7); Platelet Count Result 255 k/mm3 (150-375); Red Blood Count 4.48 M/mm3 (4.2-5.4); Red Cell Distribution Width 14.3 % (11.5-14.5); White Blood Count 6.4 K/mm3 (4.5-10.0)
[2024-08-07 21:35] LABS: Alanine Aminotransferase 37 U/L (6-35); Albumin Level 4.3 g/dL (3.5-5.1); Alkaline Phosphatase 58 U/L (38-126); Anion Gap 4 mmol/L (4-12); Aspartate Amino Transferase 65 U/L (14-36); Bilirubin,Total 0.3 mg/dL (0.2-1.3); Blood Urea Nitrogen 17 mg/dL (7-17); Calcium 9.7 mg/dL (8.4-10.2); Carbon Dioxide 28 mmol/L (22-30); Chloride 105 mmol/L (98-107); Cholesterol 230 mg/dL (0-200); Estimated Glomerular Filt Rate > 60; Glucose 84 mg/dL (65-110); HDL Direct 70 mg/dL; Potassium 4.8 mmol/L (3.4-5.0); Sodium 137 mmol/L (137-145); Total Protein 7.5 g/dL (6.3-8.2); Triglycerides 154 mg/dL (<150)
[2024-08-07 21:47] LABS: Thyroid Stimulating Hormone Reflex < 0.015 uIU/mL (0.465-4.68)
[2024-08-07 21:48] LABS: LDL Cholesterol Direct 122 mg/dL
[2024-08-07 22:17] LABS: Free T4 Free Thyroxine Reflex 1.18 ng/dL (0.78-2.19)
[2024-08-07 23:05] LABS: Total Triiodothyronine (T3) 1.26 NG/ML (0.82-1.58)
== END 2024-08-07 08:27 | disposition home or self-care (01) ==
LOC: ANHBWCLAB 08:27
PROVIDERS: PCP Nurse Practitioner Adult Health; Visit Provider Nurse Practitioner Adult Health
DX: E78.5 Hyperlipidemia, unspecified (principal)
CPT/HCPCS: 36415; 80053; 80061; 84439; 84443; 84480; 85025

== ENCOUNTER 2024-09-02 20:37 | Emergency (ER) | payer BC, SELFPAY ==
--- NOTE | ~2024-09-02 | CT_ITS ---
EXAMINATION: CT abdomen pelvis wo con DATE: 09/02/2024 21:18 INDICATION: rightflank pain X 2 HOURS/HX OF STONES TECHNIQUE: Computed tomography (CT) of the abdomen and pelvis was performed without intravenous contr ast. Automated exposure control and iterative reconstruction technique were employed. The dose-length product was 172.10 mGy-cm. COMPARISON: 03/27/2017. FINDINGS: Lower thorax: Unremarkable Liver: Normal. Biliary/Gallbladder: Gallbladder is normal. No bile duct dilation. Pancreas: No mass or duct dilation. Spleen: Normal. Adrenals:No mass. Kidneys: Mild left perinephric stranding and hydronephrosis. GI tract: No small or large bowel dilation. Normal appendix. Diverticulosis without diverticulitis. Mesentery/Peritoneum: No ascites, mass, or free air. Retroperitoneum: No mass. Atherosclerotic calcifications of intra-abdominal arterial vessels. Pelvis: 3 mm calcification in the right UVJ. Otherwise normal urinary bladder. Multiple pelvic phlebo liths. Absent uterus. Bilateral ovaries not confidently identified. Soft Tissues: Soft tissues and body wall unremarkable. Bones: No acute osseous finding. IMPRESSION: 3 mm right UVJ stone causing mild obstructive uropathy. Reviewed, dictated and finalized at location K.
[2024-09-02 20:39] VITALS: BP 140/87; PULSE 86; RESP 20; TEMP 36.4; O2SAT 99
--- OUTSIDE RECORDS SUMMARY | 2024-09-02 20:39 | XMS_ITS | Continuity of Care Document ---
Author Organization [facility] Address [address] [place] [address] Phone Care Team Providers Care Mill Operator Helper Name Role Phone Brian Palomo DO Unavailable Unavailable Advance Directives Directive Yes / No Effective Date File Name No Information Encounters Encounter Description Practice Location Reason(s) For Visit Diagnoses Date Provider Providers Copied on Encounter [facility], [address], [place], [place], [address], [place] tel:[phone] [facility] No Information Dewey Ambrose. [address] [place], [address], [place]. tel:[phone] Referring Provider: Sneha Denny MD, [address], [place], [address]. tel:[phone] Family History Family Member Type Diagnosis Age [...]
--- OUTSIDE RECORDS SUMMARY | 2024-09-02 20:39 | XMS_ITS | Referral Summary ---
Author Organization [facility] Address [address] [facility] [address] [place] [address] Phone Care Team Providers Care Washer Repairman Name Role Phone No, Physician Primary Care Provider [phone] Allergies No known active allergies Medications No known medications Active Problems No known active problems Social History Tobacco Use Types Packs/Day Years Used Date Smoking Tobacco: Never Assessed Personal Safety Answer Date Recorded Getting School Help Needed Not on file 05/01 Comments Unknown Sex and Gender Information Value Date Recorded Sex Assigned at Not on file Legal Sex Female 6:19 AM INVESTMENT BANKER Gender Identity Not on file Sexual Orientation Not on file Plan of Treatment Not on file Insurance [facility] Care Teams Washer Repairman Relationship Specialty Start Date End Date No, Physician PCP - General 05/13/22
--- OUTSIDE RECORDS SUMMARY | 2024-09-02 20:39 | XMS_ITS | Clinical Summary ---
Author Organization [facility] [place] Address [address] [place] [address] Phone Care Team Providers Care Head Transfer Clerk Name Role Phone Sneha Denny MD Primary Care Provider [phone] Allergies Active Allergy Reactions Criticality Noted Date [...] 6 Tablets 40 Tablet 04/22/2019 1:14 PM CHEMIST FOOD 0 Active docusate sodium (Colace) 100 mg capsule Take 1 Capsule (100 mg) by mouth 2 times daily. 60 Capsule 6 04/22/2019 1:14 PM CHEMIST FOOD 0 Active Social History Tobacco Use Types Packs/Day Years Used Date Smoking Tobacco: Every Day Smokeless Tobacco: Never Comments:1-3 daily Alcohol Use Standard Drinks/Week Comments Yes 0 (1 standard drink = 0.6 oz pur e alcohol) weekends Comments No Sex and Gender Information Value Date Recorded Sex Assigned at Not on file Legal Sex Female 3:29 AM CHEMIST FOOD Gender Identity Not on file Sexual Orientation Not on file Last Filed Vital Signs Vital Sign Reading Time Taken Comments Blood Pressure 132/75 04/22/2019 1:35 PM CHEMIST FOOD Pulse 97 04/22/2019 1:35 PM CHEMIST FOOD Temperature 36.8 C (98.2 F) 04/22/2019 12:54 PM CHEMIST FOOD Respiratory Rate 17 04/22/2019 12:40 PM CHEMIST FOOD Oxygen Saturation 93% 04/22/2019 1:35 PM CHEMIST FOOD Inhaled Oxygen Concentration - - Weight 70.3 kg (155 lb) 04/22/2019 6:02 AM CHEMIST FOOD Height 160 cm (5' 3) 04/22/2019 6:02 AM CHEMIST FOOD Body Mass Index 27.46 04/22/2019 6:02 AM CHEMIST FOOD Plan of Treatment Health Maintenance Due Date [...] 2008 OSTEOPOROSIS SCREENING 2023 INFLUENZA VACCINE (#1) 2024 RSV VACCINE (60+ or ) (1 - 1-dose 75+ series) 2033 Medical Devices Implanted Type Area Footwear Sales Leader Device Identifier Shelf Expiration Date Model / Serial / Lot Hemostatic Surgiflo 8ml W/Thrombin 2994 - [id number] Implanted:Qty : 1 on 04/22/2019 by Nitesh Foss MD at [facility] Hemostatic N/A: Spine Cervical Anterior [employer] 01/27/2020 2994 / / [id number] Plate Atlnts Trnsltnl Acs 40.0mm [id number] - [id number] Implanted:Qty : 1 on 04/22/2019 by Nitesh Foss MD at [facility] Plate N/A: Spine Cervical Anterior [employer] [id number] / / Description:STERILIZATION # 200 [address] Va 4.0x15mm [id number] - [id number] Implanted:Qty : 6 on 04/22/2019 by Nitesh Foss MD at [facility] N/A: Spine Cervical Anterior [employer] [id number] / / Description:STERILIZATION # 200 90567 APR 16 REQ#[id number] Paste Bone Dbm Plus 1ml [id number] - [id number] Implanted:Qty : 1 on 04/22/2019 by Nitesh Foss MD at [facility] N/A: Spine Cervical Anterior [employer] 01/12/2020 [id number] / [id number] / Description:REQ [id number] Bone Block Lascr [id number] - [id number] Implanted:Qty : 1 on 04/22/2019 by Nitesh Foss MD at [facility] N/A: Spine Cervical Anterior [employer] 07/25/2021 [id number] / [id number] / [id number] Description:REQ#[id number] Bone Block Lascr [id number] - [id number] Implanted:Qty : 1 on 04/22/2019 by Nitesh Foss MD at [facility] N/A: Spine Cervical Anterior [employer] 12/12/2021 [id number] / [id number] / [id number] Insurance RX [facility] Advance Directives For more information, please contact: [phone] * Full Code (Latest Code Status on File) Date Activated Date Inactivated Comments 04/22/2019 6:38 AM 04/22/2019 4:36 PM Care Teams Head Transfer Clerk Relationship Specialty Start Date End Date Sneha Denny MD [address] [address] PCP - General 02/13/15
--- OUTSIDE RECORDS SUMMARY | 2024-09-02 20:39 | XMS_ITS | Clinical Summary ---
Author Organization [facility] Address [address] [place] [address] Phone Care Team Providers Care Ict Support And Test Engineers Name Role Phone No, Physician Primary Care Provider [phone] Allergies No known active allergies Medications No known medications Active Problems No known active problems Social History Tobacco Use Types Packs/Day Years Used Date Smoking Tobacco: Never Assessed Personal Safety Answer Date Recorded Getting School Help Needed Not on file 05/01 Comments Unknown Sex and Gender Information Value Date Recorded Sex Assigned at Not on file Legal Sex Female 6:19 AM ARTIST'S REPRESENTATIVE Gender Identity Not on file Sexual Orientation [...] Screening Completed 04/03/2009 , 11/07/2008, 10/08/2008 Insurance [facility] Care Teams Ict Support And Test Engineers Relationship Specialty Start Date End Date No, Physician PCP - General 05/13/22
--- NOTE | 2024-09-02 20:50 | ECG_ITS ---
Test Date: 2024-09-02 21:02:57 Measurements Intervals [place] Rate: 87 P: 68 [place]: 194 QRS: 12 QRSD: 70 T: 61 QT: 348 QTc: 420 Interpretive Statements SINUS RHYTHM WITH SINUS ARRHYTHMIA No previous ECG available for comparison Electronically Signed On 09-02-2024 22:07:41 CDT by Rosanna Horner M.D.
[2024-09-02] MEDS: SODIUM CHLORIDE 0.9% IV 1,000 ML 999 ML IV CONT (20:56)
[2024-09-02] MEDS: KETOROLAC 30 MG/ML VIAL (*BKC) IV PUSH (20:56)
[2024-09-02] MEDS: ONDANSETRON INJ 4 MG/2 ML VIAL IV PUSH (20:57)
--- OUTSIDE RECORDS SUMMARY | 2024-09-02 20:58 | XMS_ITS | Continuity of Care Document ---
Author Organization [facility] Address [address] [place] [address] Phone Care Team Providers Care Patternmaker Sample Name Role Phone Brian Palomo DO Unavailable Unavailable Advance Directives Directive Yes / No Effective Date File Name No Information Encounters Encounter Description Practice Location Reason(s) For Visit Diagnoses Date Provider Providers Copied on Encounter [facility], [address], [place], [place], [id number], [place] tel:[phone] [facility] No Information Dewey Ambrose. [address] [place], [address], [place]. tel:[phone] Referring Provider: Sneha Denny MD, [address], [place], [address]. tel:[phone] Family History Family Member Type Diagnosis Age At Onset No Information Payers Payer name Insurance type Covered constitution party ID Authoriza tion(s) No Information Social History [...]
[2024-09-02 20:59] LABS: Hematocrit 35.3 % (35.0-42.0); Hemoglobin 11.6 g/dL (11.7-13.8); Immature Granulocyte Percent A 0.3 % (0.0-0.0); Lymphocytes Absolute Auto 3.30 K/mm3 (1.10-4.50); Mean Corpuscular HGB Conc 32.9 g/dL (32-36); Mean Corpuscular Hemoglobin 29.4 pg (27.0-31.0); Mean Corpuscular Volume 89.4 fL (78.0-102.0); Nucleated Red Blood Cells Absolute Auto 0.00 K/mm3 (0.00-0.00); Nucleated Red Blood Cells Perc 0.0 % (0-0.0); Platelet Count Result 315 K/mm3 (150-420); Red Blood Count 3.95 M/mm3 (4.20-5.40); White Blood Count 9.3 K/mm3 (4.8-10.8)
--- NOTE | 2024-09-02 21:03 | PC.NURSE ---
pt to ct scan via wheelchair per grader green meat at this time.
[2024-09-02 21:04] LABS: Albumin Level 4.0 g/dL (3.5-5.1); Blood Urea Nitrogen 17 mg/dL (7-17); Carbon Dioxide 23 mmol/L (22-30); Chloride 106 mmol/L (98-107); Estimated CRCL calculation 45 ml/min; Estimated Glomerular Filt Rate > 60; Lipase 186 U/L (23-300); Potassium 3.8 mmol/L (3.4-5.0); Total Protein 7.0 g/dL (6.3-8.2)
[2024-09-02 21:05] LABS: Glucose 113 mg/dL (65-110)
[2024-09-02 21:06] LABS: Alanine Aminotransferase 35 U/L (6-35); Alkaline Phosphatase 66 U/L (38-126); Anion Gap 7 mmol/L (4-12); Aspartate Amino Transferase 33 U/L (14-36); Bilirubin,Total 0.3 mg/dL (0.2-1.3); Calcium 8.8 mg/dL (8.4-10.2); INR 0.9; Osmolality Calculated 284 mOsm/kg (285-295); Partial Thromboplastin Time 23.5 Sec (23.9-30.70); Prothrombin Time 9.8 Seconds (9.50-12.1); Sodium 136 mmol/L (137-145)
--- NOTE | 2024-09-02 21:14 | PC.NURSE ---
pt returned from CT scan, awaiting results. RN monitoring. spouse at bedside. call light within reach.
--- NOTE | 2024-09-02 21:33 | PC.NURSE ---
DR. TENORIO AT BEDSIDE FOR PT UPDATE INCLUDING RESULTS OF LABS/IMAGING AND PLAN OF CARE.
[2024-09-02] MEDS: MORPHINE SULFATE (*CRX) 4 MG/ML INJ IV PUSH (21:50)
[2024-09-02 21:56] VITALS: BP 140/67; PULSE 90; RESP 20; TEMP 37.1; O2SAT 100
--- NOTE | 2024-09-02 21:59 | PC.NURSE ---
pt mediated for pain at this time. RN monitoring.
--- NOTE | 2024-09-02 22:02 | ED.ABDPAIN ---
HPI - Abdominal Pain General Chief Complaint: Urogenital-Female Stated Complaint: abdominal pain Time Seen by Provider: 09/02/24 20:50 Source: patient and family Mode of arrival: ambulatory Limitations: no limitations History of Present Illness HPI narrative: this is a 64-year-old female with history of kidney stones presents with right flank pain radiating into her right groin area with no dysuria no hematuria. There is no fever chills, patient rates her pain about 8/10 with nausea and retching with some no chest pain no shortness of breath no diarrhea or constipation. MD elicited complaint: flank pain Onset (ago): hour(s) Pain Consistency: constant Location: R flank Severity: severe Pain scale (0-10): 8 Quality: sharp Radiation: R flank Migration to: suprapubic Exacerbating factors: nothing Related Data Home Medications ?Medication ?Instructions ?Recorded ?Confirmed ?Last Taken ?Type ascorbic acid (vitamin C) 1,000 mg 1 gm PO DAILY 04/19/19 07/29/24 02/01/24 History tablet (Vitamin C) ymhhftbeqwpi-jxgtakef-zqoyb acid 1 cap PO DAILY 04/19/19 07/29/24 02/01/24 History 400 mcg-vitamin K 80 mcg capsule (Multi For Her 50 Plus) vitamin E 268 mg (400 unit) capsule 400 unit PO DAILY 04/19/19 07/29/24 02/01/24 History cyanocobalamin (vitamin B-12) 1,000 mcg PO DAILY 12/04/19 07/29/24 02/01/24 History 1,000 mcg tablet (Vitamin B-12) magnesium 1 cap PO DIRECTED PRN 12/04/19 07/29/24 02/01/24 History Constipation cholecalciferol (vitamin D3) 25 25 mcg PO DAILY 12/03/21 07/29/24 02/01/24 History mcg (1,000 unit) capsule zinc gluconate 30 mg tablet 30 mg PO DAILY 12/03/21 07/29/24 02/01/24 History lutein 20 mg capsule 20 mg PO DAILY 07/28/23 07/29/24 02/01/24 History biotin 10,000 mg PO BID 01/15/24 07/29/24 02/01/24 History B-complex with vitamin C 1 cap PO DAILY 07/29/24 07/29/24 Unknown History Allergies Allergy/AdvReac Type Severity Reaction Status Date / Time Gadolinium-Containing Allergy Severe Hives Verified 07/29/24 10:50 Contrast Medi minocycline Allergy Severe Hives Verified 07/29/24 10:50 tetracycline Allergy Mild HIVES Verified 07/29/24 10:50 Review of Systems Review of Systems: All systems reviewed & are unremarkable except as noted in HPI and below PMFSH Past Medical History Medical History Quit smoking within past year Immunization due Tendonitis of both rotator cuffs Rotator cuff tear, right Left shoulder tendonitis Impingement syndrome of left shoulder Right elbow pain Right shoulder pain Orthopedic aftercare Carpal tunnel syndrome of right wrist Family history of colon cancer in mother Carpal tunnel syndrome of left wrist Tobacco abuse Borderline hypothyroidism History of HPV infection History of vaginal delivery Aftercare following surgery History of endometriosis cyst on ovary Hyperlipidemia Elevated TSH Cervical stenosis of spinal canal Surgical History Surgical History H/O repair of right rotator cuff (~04/01/22) Right shoulder Arthroscopic rotator cuff repair with subacromial decompression, biceps tenodesis History of carpal tunnel release Right wrist 04/19 History of shoulder surgery (~11/2019) History of laparoscopy History of dilation and curettage History of endometrial ablation History of tonsillectomy History of hysterectomy History of back surgery History of discectomy C4-C6 - with Fusion Family History Family History Mother Diabetes mellitus Carcinoma of colon Sibling Diabetes mellitus Family history of lymphoma Father Hypertension Acute myocardial infarction Grandparent Family history of rheumatoid arthritis Acute myocardial infarction Social History Social History Smoking packs per day: 1.5 Smoking cigarettes per day: 30.0 Years smoked: 35 Smoking pack-years: 52.50 Smoking status: Former smoker Tobacco type: cigarettes Second hand tobacco smoke exposure: No Smoking end date: 11/27/21 Alcohol intake: never Drinks per week: 2 Alcohol use details: socially Substance use: never Substance use type: does not use Lack of Transportation: No Lack of Food: Never True Current Housing: I Have Housing Concerned About Future Housing: No Difficulty Paying Gas/Electric Bills: No Difficulty Paying for Meds: No Currently Unemployed: No Education: Trade/Vocational Certificate Difficulty w/ Childcare or Family Care: No Living arrangements: alone Gender identity (if verbalized by the patient): Female Spiritual care concerns: No Exam Const: General: healthy appearing and no acute distress Nutritional Appearance: well nourished Orientation/consciousness: patient oriented x3 Limitations: no limitations Chest: Chest palpation & inspection: normal inspection of the chest Resp: Effort & Inspection: normal respiratory effort Auscultation: clear to auscultation bilaterally Cardio: Rate: regular rate Rhythm: regular rhythm GI: GI Palp: Yes Soft to palpation Auscultation: normal bowel sounds Urinary Catheter: Urinary Catheter: patent and draining Back/Spine/Pelvis: Back: CVA tenderness Skin: General skin exam: normal color Neuro: General: patient oriented x3 and moves all extremities Extrem: General: normal to inspection, no clubbing, cyanosis or edema and no pedal edema Course Course Emergency Course: Patient had a morphine and Toradol for pain relief so Seng IV, with IV fluids CT scan shows a 3mm stone in the right UVJ, blood work unremarkable and urinalysis performed. Vital Signs Vital signs: Vital Signs Temperature 36.4 C L 09/02/24 20:39 Pulse Rate 86 09/02/24 20:39 Respiratory Rate 20 09/02/24 20:39 Blood Pressure 140/87 09/02/24 20:39 Pulse Oximetry 99 09/02/24 20:39 Oxygen Delivery Room Air 09/02/24 20:39 Temperature 37.1 C 09/02/24 21:56 Pulse Rate 90 09/02/24 21:56 Respiratory Rate 20 09/02/24 21:56 Blood Pressure 140/67 09/02/24 21:56 Pulse Oximetry 100 09/02/24 21:56 Oxygen Delivery Room Air 09/02/24 21:56 MDM - Abdominal Pain Lab Data 09/02/24 20:55 09/02/24 20:55 Labs: Lab Results 09/02/24 Range/Units 20:55 WBC 9.3 (4.8-10.8) K/mm3 RBC 3.95 L (4.20-5.40) M/mm3 Hgb 11.6 L (11.7-13.8) g/dL Hct 35.3 (35.0-42.0) % MCV 89.4 (78.0-102.0) fL MCH 29.4 (27.0-31.0) pg MCHC 32.9 (32-36) g/dL RDW 14.5 H (11.6-14.4) % Plt Count 315 (150-420) K/mm3 MPV 9.5 (9.2-11.8) fl Immature Gran % (Auto) 0.3 H (0.0-0.0) % Neut % (Auto) 48.6 L (50.0-70.0) % Lymph % (Auto) 35.5 (18.0-42.0) % [place] % (Auto) 13.3 H (2.0-11.0) % Eos % (Auto) 1.9 (1.0-6.0) % Baso % (Auto) 0.4 (0.0-1.0) % Lymph # (Auto) 3.30 (1.10-4.50) K/mm3 [place] # (Auto) 1.24 H (0.10-0.90) K/mm3 Eos # (Auto) 0.18 (0.02-0.50) K/mm3 Baso # (Auto) 0.04 (0.00-0.10) K/mm3 Abs Immat Gran (auto) 0.03 H (0.00-0.00) K/mm3 Absolute Neuts (auto) 4.51 (1.70-7.20) K/mm3 Absolute Nucleated RBC 0.00 (0.00-0.00) K/mm3 Nucleated RBC % 0.0 (0-0.0) % PT 9.8 (9.50-12.1) Seconds INR 0.9 APTT 23.5 L (23.9-30.70) Sec Sodium 136 L (137-145) mmol/L Potassium 3.8 (3.4-5.0) mmol/L Chloride 106 (98-107) mmol/L Carbon Dioxide 23 (22-30) mmol/L Anion Gap 7 (4-12) mmol/L BUN 17 (7-17) mg/dL Creatinine 0.90 (0.7-1.0) mg/dL Estim Creat Clear Calc 45 ml/min Estimated GFR > 60 (59 - ) Glucose 113 H (65-110) mg/dL Calculated Osmolality 284 L (285-295) mOsm/kg Lactic Acid 2.1 H (0.4-2.0) mmol/L Calcium 8.8 (8.4-10.2) mg/dL Total Bilirubin 0.3 (0.2-1.3) mg/dL AST 33 (14-36) U/L ALT 35 (6-35) U/L Alkaline Phosphatase 66 (38-126) U/L Total Protein 7.0 (6.3-8.2) g/dL Albumin 4.0 (3.5-5.1) g/dL Lipase 186 (23-300) U/L Imaging Data Radiologist's impression: ITS Impressions Abdomen/Pelvis CT 09/02/24 21:23 IMPRESSION: 3 mm right UVJ stone causing mild obstructive uropathy. Critical Care Time Critical Care Time Critical Care Time: No Discharge Plan Discharge Clinical Impression: Urolithiasis Qualifiers: Urinary calculus location: other lower urinary tract location Qualified Code(s): N21.8 - Other lower urinary tract calculus Patient Disposition: Home Condition: Stable Instructions: Antibiotic Form, Ureteral Stones (ED) Additional Instructions: advised to take medication as prescribed and follow with primary care physician within the next 3 to 5 days further evaluation treatment. Patient Language: South Korean Prescriptions: New tramadol 50 mg tablet 50 mg PO Q6H PRN (Reason: pain) Qty: 20 0RF tamsulosin [Flomax] 0.4 mg capsule 0.4 mg PO DAILY Qty: 7 0RF ondansetron 4 mg tablet,disintegrating 4 mg PO Q6H PRN (Reason: nausea and vomiting) Qty: 14 0RF No Action zinc gluconate 30 mg tablet 30 mg PO DAILY cholecalciferol (vitamin D3) 25 mcg (1,000 unit) capsule 25 mcg PO DAILY estradiol 1 mg tablet 1.5 mg PO DAILY 90 Days Qty: 135 4RF lutein 20 mg capsule 20 mg PO DAILY Rx Instructions: give with meal/snack B-complex with vitamin C Capsule 1 cap PO DAILY cyanocobalamin (vitamin B-12) [Vitamin B-12] 1,000 mcg Tablet 1,000 mcg PO DAILY magnesium 1 cap PO DIRECTED PRN (Reason: Constipation) biotin 10,000 mg PO BID vitamin E 400 unit capsule 400 unit PO DAILY Rx Instructions: Take as directed. Multi For Her 50 Plus 400-80 mcg capsule 1 cap PO DAILY Rx Instructions: Take as directed. ascorbic acid (vitamin C) [Vitamin C] 1,000 mg tablet 1 gm PO DAILY Rx Instructions: Take as directed. [place]-3 2100 1,050-1,200 mg capsule 1 cap PO BID Qty: 60 4RF alprazolam 0.25 mg tablet 0.25 mg PO BID PRN (Reason: anxiety) Qty: 30 1RF cyclobenzaprine 5 mg tablet 5 mg PO TID PRN (Reason: muscle spasm) Qty: 30 0RF bupropion HCl 150 mg tablet extended release 24 hr See Rx Instructions .ROUTE .COMPLEX Qty: 90 3RF Dose Instruction: TAKE 1 TABLET BY MOUTH IN THE MORNING Rx Instructions: TAKE 1 TABLET BY MOUTH IN THE MORNING fluoxetine 20 mg tablet 20 mg PO DAILY Qty: 90 0RF Follow-up/Referrals: Jeanne Bowden APRN [Primary Care Provider] -
--- NOTE | 2024-09-02 22:08 | PC.NURSE ---
LEÓN Lam at bedside. assisted patient to BSC. urine specimen to lab.
[2024-09-02 22:14] LABS: Add Urine Microscopic? NO; Appearance Urine Clear (Clear); Glucose Urine UA Negative (Negative); Leukocyte Esterase Ur Negative LEU/UL (Negative); Nitrate Urine Negative (Negative); Specific Grav Ur 1.010 (1.010-1.020)
[2024-09-02 22:30] VITALS: BP 142/77; PULSE 88; RESP 16; O2SAT 95
== END 2024-09-02 22:35 | disposition home or self-care (01) ==
PROVIDERS: Emergency Provider Emergency Medicine; PCP Nurse Practitioner Adult Health
DX: N21.8 Other lower urinary tract calculus (principal); Z87.891 Personal history of nicotine dependence
CPT/HCPCS: 36415; 74176; 80053; 81003; 83605; 83690; 85025; 85610; 85730; 93005; 96361; 96374; 96375; 99284; J1885; J2270; J2405; J7030

== ENCOUNTER 2024-09-05 07:38 | Day surgery (SDC) | payer BC, SELFPAY ==
[2024-09-05] VITALS (13 sets, daily range): BP systolic 79–122; BP diastolic 34–69; PULSE 66–95; RESP 12–18; TEMP 36.6–37.1; O2SAT 97–99
--- NOTE | ~2024-09-05 | CT_ITS ---
Non-contrast CT scan of the Abdomen and Pelvis Clinical indication: Right flank pain Technique: 2.5 mm axial scans were obtained through the abdomen and pelvis without intravenous or or al contrast. Dose reduction technique was used on this scan by utilizing automated exposure control a nd iterative reconstruction technique. The dose-length product (DLP) was 163.01 mGy-cm. COMPARISON: 09/02/2024 Findings: Images through the lung bases reveal no abnormalities. Persistent 3 mm right UVJ stone, with mild to moderate right hydroureteronephrosis to this level. No left renal stone, left ureteral stone, or left hydronephrosis. The liver, spleen, pancreas, gallbladder, and adrenals appear normal. There are atherosclerotic calci fications of the aorta. . There is no evidence of bowel obstruction. Images through the pelvis were performed. There is no evidence of ascites or lymphadenopathy. Urinary bladder unremarkable. No pelvic mass seen. Impression: Persistent 3 mm right UVJ stone with mild to moderate right hydroureteronephrosis. Reviewed, dictated and finalized at [facility]. Impression: Persistent 3 mm right UVJ stone with mild to moderate right hydroureteronephros is.
--- NOTE | ~2024-09-05 | XR_ITS ---
Exam: Abdomen 1V HISTORY: kidney stone COMPARISON: Reference is made to CT examination of the abdomen and pelvis, performed the same day dem onstrating a 4mm right ureterovesicular junction stone with mild to moderate right-sided hydrouretero nephrosis. TECHNIQUE: Supine images of the abdomen FINDINGS: Bowel gas pattern is non-obstructive. There is no free air or deep sulci. Innumerable calcifications within the pelvis. Please see flower image in PACS for location of 4 mm right ureterovesicular junction stone. Lung bases are unremarkable. Bones and soft tissues are unremarkable. IMPRESSION: Nonspecific, nonobstructive bowel gas pattern. Redemonstration of a 4 mm right ureterovesicular junction stone Reviewed, dictated and finalized at location A.
--- NOTE | ~2024-09-05 | XR_ITS ---
EXAMINATION: XR fluoroscopy no charge DATE: 09/05/2024 12:18 INDICATION: Cystogram for right ureterovesicular junction stone. TECHNIQUE: 4 fluoroscopic images of the abdomen and pelvis were obtained during procedure performed allison Jenkins. Radiologist was not present for the imaging or procedure. The amount of fluoroscopy rhiannon e used during this procedure was 0.1 minutes. Total DAP was 0.058 mGym^2. COMPARISON: 09/05/2024 FINDINGS: Images demonstrate a wire advanced through the bladder into the right ureter coiled in an upper pole calyx of the right kidney. There are multiple phleboliths in the pelvis which remain unchanged throug hout the study. There is an additional small calcification at the right ureterovesicular junction whi ch is seen alongside the wire but is not visualized on the subsequent images post removal of wire lik prashanth representing extraction of the previous noted right UVJ stone. IMPRESSION: 1. Fluoroscopy utilized during likely extraction of the stone at the right ureterovesicular junction. See procedure note for further detail. Reviewed, dictated and finalized at location A. IMPRESSION: 1. Fluoroscopy utilized during likely extraction of the stone at the right uret erovesicular junction. See procedure note for further detail.
--- OUTSIDE RECORDS SUMMARY | 2024-09-05 07:42 | XMS_ITS | Referral Summary ---
Author Organization [facility] Address [address] [facility] [address] [place] [address] Phone Care Team Providers Care Highway Landscape Architect Name Role Phone No, Physician Primary Care Provider [phone] Allergies No known active allergies Medications No known medications Active Problems No known active problems Social History Tobacco Use Types Packs/Day Years Used Date Smoking Tobacco: Never Assessed Personal Safety Answer Date Recorded Getting School Help Needed Not on file 05/01 Comments Unknown Sex and Gender Information Value Date Recorded Sex Assigned at Not on file 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
--- OUTSIDE RECORDS SUMMARY | 2024-09-05 07:42 | XMS_ITS | Clinical Summary ---
Author Organization [facility] Address [address] [place] [address] Phone Care Team Providers Care Studio Operations Manager Name Role Phone Sneha Denny MD Primary Care Provider [phone] Allergies Active Allergy Reactions Criticality Noted Date [...] 6 Tablets 40 Tablet 04/22/2019 1:14 PM VEST MAKER 0 Active docusate sodium (Colace) 100 mg capsule Take 1 Capsule (100 mg) by mouth 2 times daily. 60 Capsule 6 04/22/2019 1:14 PM VEST MAKER 0 Active Social History Tobacco Use Types Packs/Day Years Used Date Smoking Tobacco: Every Day Smokeless Tobacco: Never Comments:1-3 daily Alcohol Use Standard Drinks/Week Comments Yes 0 (1 standard drink = 0.6 oz pur e alcohol) weekends Comments No Sex and Gender Information Value Date Recorded Sex Assigned at Not on file Legal Sex Female 3:29 AM VEST MAKER Gender Identity Not on file Sexual Orientation Not on file Last Filed Vital Signs Vital Sign Reading Time Taken Comments Blood Pressure 132/75 04/22/2019 1:35 PM VEST MAKER Pulse 97 04/22/2019 1:35 PM VEST MAKER Temperature 36.8 C (98.2 F) 04/22/2019 12:54 PM VEST MAKER Respiratory Rate 17 04/22/2019 12:40 PM VEST MAKER Oxygen Saturation 93% 04/22/2019 1:35 PM VEST MAKER Inhaled Oxygen Concentration - - Weight 70.3 kg (155 lb) 04/22/2019 6:02 AM VEST MAKER Height 160 cm (5' 3) 04/22/2019 6:02 AM VEST MAKER Body Mass Index 27.46 04/22/2019 6:02 AM VEST MAKER Plan of Treatment Health Maintenance Due Date [...] series) 2033 Medical Devices Implanted Type Area Revenue Analyst Device Identifier Shelf Expiration Date Model / Serial / Lot Hemostatic Surgiflo 8ml W/Thrombin 2994 - [id number] Implanted:Qty : 1 on 04/22/2019 by Nitesh Foss MD at [facility] Hemostatic N/A: Spine Cervical Anterior [employer] 01/27/2020 [id number] / / [id number] Plate Atlnts Trnsltnl Acs 40.0mm [id number] - [id number] Implanted:Qty : 1 on 04/22/2019 by Nitesh Foss MD at [facility] Plate N/A: Spine Cervical Anterior [employer] DANEK [id number] / / Description:STERILIZATION # [id number] [place] 4.0x15mm [id number] - [id number] Implanted:Qty : 6 on 04/22/2019 by Nitesh Foss MD at [facility] N/A: Spine Cervical Anterior [employer] [id number] / / Description:STERILIZATION # 200 [id number] APR 16 REQ#[id number] Paste Bone Dbm Plus 1ml [id number] - [id number] Implanted:Qty : 1 on 04/22/2019 by Nitesh Foss MD at [facility] N/A: Spine Cervical Anterior [employer] 01/12/2020 [id number] / [id number] / Description:REQ [id number] Bone Block Lascr [id number] - [id number] Implanted:Qty : 1 on 04/22/2019 by Nitesh Foss MD at [facility] N/A: Spine Cervical Anterior [employer] 07/25/2021 [id number] / [id number] / [id number] Description:REQ#[id number] Bone Block Lascr [id number] - [id number] Implanted:Qty : 1 on 04/22/2019 by Nitesh Foss MD at [facility] N/A: Spine Cervical Anterior [employer] 12/12/2021 [id number] / [id number] / [id number] Insurance RX [facility] [employer] Advance Directives For more information, please contact: [phone] * Full Code (Latest Code Status on File) Date Activated Date Inactivated Comments 04/22/2019 6:38 AM 04/22/2019 4:36 PM Care Teams Studio Operations Manager Relationship Specialty Start Date End Date Sneha Denny MD [address] [address] PCP - General 02/13/15
--- OUTSIDE RECORDS SUMMARY | 2024-09-05 07:42 | XMS_ITS | Continuity of Care Document ---
Author Organization [facility] Address [address] [place] [address] Phone Care Team Providers Care Independent Trader Name Role Phone Brian Palomo DO Unavailable Unavailable Advance Directives Directive Yes / No Effective Date File Name No Information Encounters Encounter Description Practice Location Reason(s) For Visit Diagnoses Date Provider Providers Copied on Encounter [facility], [address], [place], [place], [address], [place] tel:[phone] [facility] No Information Dewey Ambrose. [address] [place], [address], [place]. tel:[phone] Referring Provider: Sneha Denny MD, [address], [place], [address]. tel:[phone] Family History Family Member Type Diagnosis Age [...]
--- OUTSIDE RECORDS SUMMARY | 2024-09-05 07:42 | XMS_ITS | Clinical Summary ---
Author Organization [facility] Address [address] [place] [address] Phone Care Team Providers Care Gastroenterology Physician Name Role Phone No, Physician Primary Care Provider [phone] Allergies No known active allergies Medications No known medications Active Problems No known active problems Social History Tobacco Use Types Packs/Day Years Used Date Smoking Tobacco: Never Assessed Personal Safety Answer Date Recorded Getting School Help Needed Not on file 05/01 Comments Unknown Sex and Gender Information Value Date Recorded Sex Assigned at Not on file 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
--- OUTSIDE RECORDS SUMMARY | 2024-09-05 08:01 | XMS_ITS | Continuity of Care Document ---
Author Organization [facility] Address [address] [place] [address] Phone Care Team Providers Care Pharmaceutical Sales Representative Name Role Phone Brian Palomo DO Unavailable Unavailable Advance Directives Directive Yes / No Effective Date File Name No Information Encounters Encounter Description Practice Location Reason(s) For Visit Diagnoses Date Provider Providers Copied on Encounter [facility], [address], [place], [place], [id number], [place] tel:[phone] [facility] No Information Dewey [address]. [address] [place], [address], [place]. tel:[phone] Referring Provider: Sneha Denny MD, [address], [place], [address]. tel:[phone] Family History Family Member Type Diagnosis Age [...]
[2024-09-05 08:13] LABS: Hematocrit 33.6 % (37.0-47.0); Hemoglobin 10.9 g/dL (12.0-15.0); Immature Granulocyte Percent A 0.5 % (0-0.5); Lymphocytes Absolute Auto 1.63 K/mm3 (0.9-3.2); Mean Corpuscular HGB Conc 32.4 g/dl (32-36); Mean Corpuscular Hemoglobin 29.4 pg (26-34); Mean Corpuscular Volume 90.6 fl (80-100); Nucleated Red Blood Cells Absolute Auto 0.000 K/mm3 (0.0-0.012); Nucleated Red Blood Cells Perc 0.0 % (0.0-0.2); Platelet Count Result 260 k/mm3 (150-375); Red Blood Count 3.71 M/mm3 (4.2-5.4); White Blood Count 6.1 K/mm3 (4.5-10.0)
--- NOTE | 2024-09-05 08:18 | ED.BACK ---
HPI - Back Pain/Injury General Chief Complaint: Back Pain/Injury Stated Complaint: dx r sided kidney stone, back pain Time Seen by Provider: 09/05/24 07:41 History of Present Illness HPI Narrative: Pt has kidney stone diagnosed 3 days ago. Pt says it is 3 mm stone. Pt says the pain was more intense this morning and the medicines were not working so she came to ED. Pt has not seen urologist yest but would like to see a urologists in [facility] here. Pt did not get KUB on her ER visit to [place]. Related Data Home Medications ?Medication ?Instructions ?Recorded ?Confirmed ?Last Taken ?Type ascorbic acid (vitamin C) 1,000 mg 1 gm PO DAILY 04/19/19 07/29/24 02/01/24 History tablet (Vitamin C) wuhfgfwyesei-ikfdpxdr-qiuqn acid 1 cap PO DAILY 04/19/19 07/29/24 02/01/24 History 400 mcg-vitamin K 80 mcg capsule (Multi For Her 50 Plus) vitamin E 268 mg (400 unit) capsule 400 unit PO DAILY 04/19/19 07/29/24 02/01/24 History cyanocobalamin (vitamin B-12) 1,000 mcg PO DAILY 12/04/19 07/29/24 02/01/24 History 1,000 mcg tablet (Vitamin B-12) magnesium 1 cap PO DIRECTED PRN 12/04/19 07/29/24 02/01/24 History Constipation cholecalciferol (vitamin D3) 25 25 mcg PO DAILY 12/03/21 07/29/24 02/01/24 History mcg (1,000 unit) capsule zinc gluconate 30 mg tablet 30 mg PO DAILY 12/03/21 07/29/24 02/01/24 History lutein 20 mg capsule 20 mg PO DAILY 07/28/23 07/29/24 02/01/24 History biotin 10,000 mg PO BID 01/15/24 07/29/24 02/01/24 History B-complex with vitamin C 1 cap PO DAILY 07/29/24 07/29/24 Unknown History Allergies Allergy/AdvReac Type Severity Reaction Status Date / Time Gadolinium-Containing Allergy Severe Hives Verified 09/05/24 11:21 Contrast Medi minocycline Allergy Severe Hives Verified 09/05/24 11:21 tetracycline Allergy Mild HIVES Verified 09/05/24 11:21 Review of Systems Review of Systems: All systems reviewed & are unremarkable except as noted in HPI and below PMFSH Past Medical History Medical History Quit smoking within past year Immunization due Tendonitis of both rotator cuffs Rotator cuff tear, right Left shoulder tendonitis Impingement syndrome of left shoulder Right elbow pain Right shoulder pain Orthopedic aftercare Carpal tunnel syndrome of right wrist Family history of colon cancer in mother Carpal tunnel syndrome of left wrist Tobacco abuse Borderline hypothyroidism History of HPV infection History of vaginal delivery Aftercare following surgery History of endometriosis cyst on ovary Hyperlipidemia Elevated TSH Cervical stenosis of spinal canal Surgical History Surgical History H/O repair of right rotator cuff (~04/01/22) Right shoulder Arthroscopic rotator cuff repair with subacromial decompression, biceps tenodesis History of carpal tunnel release Right wrist 04/19 History of shoulder surgery (~11/2019) History of laparoscopy History of dilation and curettage History of endometrial ablation History of tonsillectomy History of hysterectomy History of back surgery History of discectomy C4-C6 - with Fusion Family History Family History Mother Diabetes mellitus Carcinoma of colon Sibling Diabetes mellitus Family history of lymphoma Father Hypertension Acute myocardial infarction Grandparent Family history of rheumatoid arthritis Acute myocardial infarction Social History Social History Smoking packs per day: 1.5 Smoking cigarettes per day: 30.0 Years smoked: 35 Smoking pack-years: 52.50 Smoking status: Former smoker Tobacco type: cigarettes Second hand tobacco smoke exposure: No Smoking end date: 11/27/21 Alcohol intake: never Drinks per week: 2 Alcohol use details: socially Substance use: never Substance use type: does not use Lack of Transportation: No Lack of Food: Never True Current Housing: I Have Housing Concerned About Future Housing: No Difficulty Paying Gas/Electric Bills: No Difficulty Paying for Meds: No Currently Unemployed: No Education: Trade/Vocational Certificate Difficulty w/ Childcare or Family Care: No Living arrangements: alone Gender identity (if verbalized by the patient): Female Spiritual care concerns: No Exam Const: General: cooperative, healthy appearing and no acute distress Orientation/consciousness: patient oriented x3 Limitations: no limitations Resp: Effort & Inspection: normal respiratory effort and able to speak in complete sentences Auscultation: clear to auscultation bilaterally Cardio: Rate: regular rate Rhythm: regular rhythm GI: Inspection: normal to inspection GI Palp: Yes Soft to palpation and No Tenderness to palpation present (GI) Auscultation: normal bowel sounds Back/Spine/Pelvis: Back: CVA tenderness (right) Skin: General skin exam: normal color and no rashes or lesions noted Neuro: General: patient oriented x3 and no focal motor deficits Extrem: General: normal to inspection and full ROM Psych: Appearance: grossly normal Mental Status: mental status grossly normal Speech and movement: Normal speech and movement present Affect: normal affect Attitude: cooperative Thought process: Normal thought process present Thought content: Yes Normal thought content present Insight: Good insight present (Psych) Judgement: Good judgement present (Psych) Course Vital Signs Vital signs: Vital Signs Temperature 98 F 09/05/24 07:44 Pulse Rate 83 09/05/24 07:44 Respiratory Rate 12 09/05/24 07:44 Blood Pressure 122/60 09/05/24 07:44 Pulse Oximetry 97 09/05/24 07:44 Oxygen Delivery Room Air 09/05/24 07:44 Temperature 97.9 F 09/05/24 12:07 Pulse Rate 75 09/05/24 13:40 Respiratory Rate 12 09/05/24 13:40 Blood Pressure 103/66 09/05/24 13:40 Pulse Oximetry 98 09/05/24 13:05 Oxygen Delivery Room Air 09/05/24 13:05 Oxygen Flow Rate 6 09/05/24 12:20 MDM - Back Pain/Injury MDM Narrative Medical decision making narrative: Pt had stone diagnosed in ED at [place] 3 days ago. Pt says pain increased today. Pt has not seen urology yet. Pt is on tramadol flomax and cipro. will get labs ua KUB and ct to rule out obstruction or infection and treat pain and nausea. Pt has 3 mm stone still at right UVJ. UA does not look infected. Dr Jenkins came and evaluated patient and said will take to OR. Lab Data 09/05/24 08:00 09/05/24 08:00 Labs: Lab Results 09/05/24 09/05/24 Range/Units 08:00 08:44 WBC 6.1 (4.5-10.0) K/mm3 RBC 3.71 L (4.2-5.4) M/mm3 Hgb 10.9 L (12.0-15.0) g/dL Hct 33.6 L (37.0-47.0) % MCV 90.6 (80-100) fl MCH 29.4 (26-34) pg MCHC 32.4 (32-36) g/dl RDW 14.5 (11.5-14.5) % Plt Count 260 (150-375) k/mm3 MPV 9.3 (7.4-10.4) fl Immature Gran % (Auto) 0.5 (0-0.5) % Neut % (Auto) 55.7 (45.5-73.1) % Lymph % (Auto) 26.9 (18.3-44.2) % [place] % (Auto) 13.1 H (2.6-8.5) % Eos % (Auto) 3.0 (0-4.4) % Baso % (Auto) 0.8 (0.2-1.2) % Lymph # (Auto) 1.63 (0.9-3.2) K/mm3 [place] # (Auto) 0.8 H (0.1-0.6) K/mm3 Eos # (Auto) 0.2 (0-0.3) K/mm3 Baso # (Auto) 0.1 (0.0-0.1) K/mm3 Abs Immat Gran (auto) 0.03 (0.00-0.031) K/mm3 Absolute Neuts (auto) 3.4 (1.3-6.7) K/mm3 Absolute Nucleated RBC 0.000 (0.0-0.012) K/mm3 Nucleated RBC % 0.0 (0.0-0.2) % PT 12.0 (11.1-14.7) Seconds INR 0.9 APTT 25.9 (22.3-36.8) Seconds Sodium 137 (137-145) mmol/L Potassium 4.2 (3.4-5.0) mmol/L Chloride 104 (98-107) mmol/L Carbon Dioxide 24 (22-30) mmol/L Anion Gap 9 (4-12) mmol/L BUN 15 (7-17) mg/dL Creatinine 0.73 (0.7-1.0) mg/dL Estim Creat Clear Calc 54 ml/min Estimated GFR > 60 (59 - ) Glucose 99 (65-110) mg/dL Calcium 8.9 (8.4-10.2) mg/dL Total Bilirubin 0.1 L (0.2-1.3) mg/dL AST 32 (14-36) U/L ALT 29 (6-35) U/L Alkaline Phosphatase 54 (38-126) U/L Total Protein 6.8 (6.3-8.2) g/dL Albumin 3.8 (3.5-5.1) g/dL Urine Color Dark yellow (Yellow) Urine Appearance Cloudy H (Clear) Urine pH 5.0 (5.0-9.0) Ur Specific [place] 1.025 (1.001-1.035) Urine Protein 3+ H (Negative) mg/dL Urine Glucose (UA) Negative (Negative) mg/dL Urine Ketones Trace H (Negative) mg/dL Ur Blood (Man) 3+ H (Negative) Urine Nitrate Negative (Negative) Urine Bilirubin Negative (Negative) Urine Urobilinogen 1.0 (<2.0) mg/dL Leukocyte Esterase Rfl Trace H (Negative) YUDELKA/UL Urine RBC 21-50 H (0-2) /hpf Urine WBC None seen (0-3) /hpf Ur Squamous Epith Cells Few (Few) /hpf Urine Bacteria None seen /hpf Discharge Plan Discharge Clinical Impression: Ureterolithiasis Patient Disposition: Still a Patient Condition: Improved
[2024-09-05 08:22] LABS: Alanine Aminotransferase 29 U/L (6-35); Albumin Level 3.8 g/dL (3.5-5.1); Alkaline Phosphatase 54 U/L (38-126); Anion Gap 9 mmol/L (4-12); Aspartate Amino Transferase 32 U/L (14-36); Bilirubin,Total 0.1 mg/dL (0.2-1.3); Blood Urea Nitrogen 15 mg/dL (7-17); Calcium 8.9 mg/dL (8.4-10.2); Carbon Dioxide 24 mmol/L (22-30); Chloride 104 mmol/L (98-107); Estimated CRCL calculation 54 ml/min; Estimated Glomerular Filt Rate > 60; Glucose 99 mg/dL (65-110); Potassium 4.2 mmol/L (3.4-5.0); Sodium 137 mmol/L (137-145); Total Protein 6.8 g/dL (6.3-8.2)
[2024-09-05 08:24] LABS: INR 0.9; Prothrombin Time 12.0 Seconds (11.1-14.7)
[2024-09-05 08:25] LABS: Partial Thromboplastin Time 25.9 Seconds (22.3-36.8)
[2024-09-05] MEDS: ONDANSETRON INJ 4 MG/2 ML VIAL IV PUSH (08:29)
[2024-09-05] MEDS: SODIUM CHLORIDE 0.9% IV 1,000 ML 999 ML IV CONT (08:30)
[2024-09-05] MEDS: HYDROmorphone HCL INJ (*CRX) 2 MG/ML VIAL 0.5 MG IV PUSH (08:30)
[2024-09-05 09:00] LABS: Add Urine Microscopic? YES; Appearance Urine Cloudy (Clear); Glucose Urine UA Negative (Negative); Leukocyte Esterase Ur Trace LEU/UL (Negative); Nitrate Urine Negative (Negative); Specific Grav Ur 1.025 (1.001-1.035)
--- NOTE | 2024-09-05 09:41 | PM.HPGS ---
History of Present Illness History of Present Illness Consent: Risks, benefits, and alternatives have been discussed and questions answered. Patient agrees to proceed with procedure. Chief complaint: dx r sided kidney stone, back pain Narrative: Tanja Holman is a pleasant 64-year-old female who has not had problems with ureteral stone since 2018. Now, she has been in the ER twice in the last 3 days with pain from a 3 mm obstructing right distal ureteral calculus. She has had nausea but no fever chills or gross hematuria. After discussion of options she elects for definitive intervention with ureteroscopy and stone extraction. Review of Systems Review of Systems: All systems reviewed & are unremarkable except as noted in HPI and below PMFSH Past Medical History Medical History Quit smoking within past year Immunization due Tendonitis of both rotator cuffs Rotator cuff tear, right Left shoulder tendonitis Impingement syndrome of left shoulder Right elbow pain Right shoulder pain Orthopedic aftercare Carpal tunnel syndrome of right wrist Family history of colon cancer in mother Carpal tunnel syndrome of left wrist Tobacco abuse Borderline hypothyroidism History of HPV infection History of vaginal delivery Aftercare following surgery History of endometriosis cyst on ovary Hyperlipidemia Elevated TSH Cervical stenosis of spinal canal Surgical History Surgical History H/O repair of right rotator cuff (~04/01/22) Right shoulder Arthroscopic rotator cuff repair with subacromial decompression, biceps tenodesis History of carpal tunnel release Right wrist 04/19 History of shoulder surgery (~11/2019) History of laparoscopy History of dilation and curettage History of endometrial ablation History of tonsillectomy History of hysterectomy History of back surgery History of discectomy C4-C6 - with Fusion Family History Family History Mother Diabetes mellitus Carcinoma of colon Sibling Diabetes mellitus Family history of lymphoma Father Hypertension Acute myocardial infarction Grandparent Family history of rheumatoid arthritis Acute myocardial infarction Social History Social History Smoking packs per day: 1.5 Smoking cigarettes per day: 30.0 Years smoked: 35 Smoking pack-years: 52.50 Smoking status: Former smoker Tobacco type: cigarettes Second hand tobacco smoke exposure: No Smoking end date: 11/27/21 Alcohol intake: never Drinks per week: 2 Alcohol use details: socially Substance use: never Substance use type: does not use Lack of Transportation: No Lack of Food: Never True Current Housing: I Have Housing Concerned About Future Housing: No Difficulty Paying Gas/Electric Bills: No Difficulty Paying for Meds: No Currently Unemployed: No Education: Trade/Vocational Certificate Difficulty w/ Childcare or Family Care: No Living arrangements: alone Gender identity (if verbalized by the patient): Female Spiritual care concerns: No Meds Home Medications and Allergies Home Medications ?Medication ?Instructions ?Recorded ?Confirmed ?Type ascorbic acid (vitamin C) 1,000 mg 1 gm PO DAILY 04/19/19 07/29/24 History tablet (Vitamin C) hfiswcrqciyv-jcrhhilf-vzeok acid 1 cap PO DAILY 04/19/19 07/29/24 History 400 mcg-vitamin K 80 mcg capsule (Multi For Her 50 Plus) vitamin E 268 mg (400 unit) capsule 400 unit PO DAILY 04/19/19 07/29/24 History cyanocobalamin (vitamin B-12) 1,000 mcg PO DAILY 12/04/19 07/29/24 History 1,000 mcg tablet (Vitamin B-12) magnesium 1 cap PO DIRECTED PRN 12/04/19 07/29/24 History Constipation cholecalciferol (vitamin D3) 25 25 mcg PO DAILY 12/03/21 07/29/24 History mcg (1,000 unit) capsule zinc gluconate 30 mg tablet 30 mg PO DAILY 12/03/21 07/29/24 History omega-3 1,050 bs-iyg-dfk-dpa-fish 1 cap PO BID #60 caps 05/19/23 07/29/24 Rx oil 1,200 mg capsule ([place]-3 2100) lutein 20 mg capsule 20 mg PO DAILY 07/28/23 07/29/24 History estradiol 1 mg tablet 1.5 mg (1.5 x 1 mg) PO DAILY 90 08/17/23 07/29/24 Rx days #135 tabs biotin 10,000 mg PO BID 01/15/24 07/29/24 History alprazolam 0.25 mg tablet 0.25 mg PO BID PRN anxiety #30 tabs 04/09/24 07/29/24 Rx cyclobenzaprine 5 mg tablet 5 mg PO TID PRN muscle spasm #30 06/26/24 07/29/24 Rx tabs bupropion HCl 150 mg 24 hr tablet, See Rx Instructions .Route 07/11/24 07/29/24 Rx extended release .COMPLEX #90 tabs B-complex with vitamin C 1 cap PO DAILY 07/29/24 07/29/24 History fluoxetine 20 mg tablet 20 mg PO DAILY #90 tabs 08/29/24 Rx ondansetron 4 mg disintegrating 4 mg PO Q6H PRN nausea and 09/02/24 Rx tablet vomiting #14 tabs tamsulosin 0.4 mg capsule (Flomax) 0.4 mg PO DAILY #7 caps 09/02/24 Rx tramadol 50 mg tablet 50 mg PO Q6H PRN pain #20 tabs 09/02/24 Rx ciprofloxacin HCl 500 mg tablet 500 mg PO Q12H 5 days #10 tabs 09/04/24 Rx Allergies Allergy/AdvReac Type Severity Reaction Status Date / Time Gadolinium-Containing Allergy Severe Hives Verified 09/05/24 07:40 Contrast Medi minocycline Allergy Severe Hives Verified 09/05/24 07:40 tetracycline Allergy Mild HIVES Verified 09/05/24 07:40 Vital Signs Vital Signs - 24 hr 09/05/24 07:44 Temperature 98 F Pulse Rate 83 Respiratory Rate 12 Blood Pressure 122/60 Pulse Oximetry 97 Oxygen Delivery Room Air Exam Const: General: no acute distress Resp: Effort & Inspection: normal respiratory effort GI: Inspection: non-distended GI Palp: No abdominal tenderness and No Guarding due to palpation present (GI) Auscultation: normal bowel sounds Assessment and Plan Assessment and plan (1) Right ureteral stone: Code(s): N20.1 - Calculus of ureter Status: Acute Assessment and Plan: Cystoscopy, right ureteroscopy with stone extraction, possible laser lithotripsy, retrograde pyelogram and stent placement
--- NOTE | 2024-09-05 09:43 | WPDHPUPDATE1 ---
History and Physical Update Update Date/Time: 09/05/24 09:43 History and Physical has been reviewed, including an updated exam of the patient. There are NO changes in the patient's condition. Risks, benefits, and alternatives have been discussed and questions answered. Patient agrees to proceed with procedure.
--- OUTSIDE RECORDS SUMMARY | 2024-09-05 10:40 | XMS_ITS | Clinical Summary ---
Author Organization [facility] Address [address] [place] [address] Phone Care Team Providers Care Learning And Development Assistant Name Role Phone No, Physician Primary Care Provider [phone] Allergies No known active allergies Medications No known medications Active Problems No known active problems Social History Tobacco Use Types Packs/Day Years Used Date Smoking Tobacco: Never Assessed Personal Safety Answer Date Recorded Getting School Help Needed Not on file 05/01 Comments Unknown Sex and Gender Information Value Date Recorded Sex Assigned at Not on file 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
--- OUTSIDE RECORDS SUMMARY | 2024-09-05 10:40 | XMS_ITS | Clinical Summary ---
Author Organization [facility] [place] Address [address] [place] [address] Phone Care Team Providers Care Master Fire Control Technician Name Role Phone Sneha Denny MD Primary Care Provider [phone] Allergies Active Allergy Reactions Criticality Noted Date [...] 6 Tablets 40 Tablet 04/22/2019 1:14 PM BREAST PULLER 0 Active docusate sodium (Colace) 100 mg capsule Take 1 Capsule (100 mg) by mouth 2 times daily. 60 Capsule 6 04/22/2019 1:14 PM BREAST PULLER 0 Active Social History Tobacco Use Types Packs/Day Years Used Date Smoking Tobacco: Every Day Smokeless Tobacco: Never Comments:1-3 daily Alcohol Use Standard Drinks/Week Comments Yes 0 (1 standard drink = 0.6 oz pur e alcohol) weekends Comments No Sex and Gender Information Value Date Recorded Sex Assigned at Not on file Legal Sex Female 3:29 AM BREAST PULLER Gender Identity Not on file Sexual Orientation Not on file Last Filed Vital Signs Vital Sign Reading Time Taken Comments Blood Pressure 132/75 04/22/2019 1:35 PM BREAST PULLER Pulse 97 04/22/2019 1:35 PM BREAST PULLER Temperature 36.8 C (98.2 F) 04/22/2019 12:54 PM BREAST PULLER Respiratory Rate 17 04/22/2019 12:40 PM BREAST PULLER Oxygen Saturation 93% 04/22/2019 1:35 PM BREAST PULLER Inhaled Oxygen Concentration - - Weight 70.3 kg (155 lb) 04/22/2019 6:02 AM BREAST PULLER Height 160 cm (5' 3) 04/22/2019 6:02 AM BREAST PULLER Body Mass Index 27.46 04/22/2019 6:02 AM BREAST PULLER Plan of Treatment Health Maintenance Due Date [...] series) 2033 Medical Devices Implanted Type Area Broodmare Barn Groom Device Identifier Shelf Expiration Date Model / Serial / Lot Hemostatic Surgiflo 8ml W/Thrombin 2994 - [id number] Implanted:Qty : 1 on 04/22/2019 by Nitesh Foss MD at [facility] Hemostatic N/A: Spine Cervical Anterior [employer] 01/27/2020 2994 / / [id number] Plate Atlnts Trnsltnl Acs 40.0mm [id number] - [id number] Implanted:Qty : 1 on 04/22/2019 by Nitesh Foss MD at [facility] Plate N/A: Spine Cervical Anterior [employer]ANE[employer] [id number] / / Description:STERILIZATION # [id number] [place] 4.0x15mm [id number] - [id number] Implanted:Qty : 6 on 04/22/2019 by Nitesh Foss MD at [facility] N/A: Spine Cervical Anterior [employer] [id number] / / Description:STERILIZATION # 200 [id number] APR 16 REQ#[id number] Paste Bone Dbm Plus 1ml [id number] - [id number] Implanted:Qty : 1 on 04/22/2019 by Nitesh Foss MD at [facility] N/A: Spine Cervical Anterior [employer] 01/12/2020 [id number] / [id number] / Description:REQ [id number] Bone Block Lascr [id number] - [id number] Implanted:Qty : 1 on 04/22/2019 by Nitesh Foss MD at [facility] N/A: Spine Cervical Anterior [employer] 07/25/2021 [id number] / [id number] / [id number] Description:REQ#[id number] Bone Block Lascr [id number] - [id number] Implanted:Qty : 1 on 04/22/2019 by Nitesh Foss MD at [facility] N/A: Spine Cervical Anterior [employer] 12/12/2021 [id number] / [id number] / [id number] Insurance RX [facility] [employer] Advance Directives For more information, please contact: [phone] * Full Code (Latest Code Status on File) Date Activated Date Inactivated Comments 04/22/2019 6:38 AM 04/22/2019 4:36 PM Care Teams Master Fire Control Technician Relationship Specialty Start Date End Date Sneha Denny MD [address] [address] PCP - General 02/13/15
--- OUTSIDE RECORDS SUMMARY | 2024-09-05 10:40 | XMS_ITS | Referral Summary ---
Author Organization [facility] Address [address] [facility] [address] [place] [address] Phone Care Team Providers Care Industrial Roof Plumber Name Role Phone No, Physician Primary Care Provider [phone] Allergies No known active allergies Medications No known medications Active Problems No known active problems Social History Tobacco Use Types Packs/Day Years Used Date Smoking Tobacco: Never Assessed Personal Safety Answer Date Recorded Getting School Help Needed Not on file 05/01 Comments Unknown Sex and Gender Information Value Date Recorded Sex Assigned at Not on file 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
--- OUTSIDE RECORDS SUMMARY | 2024-09-05 10:40 | XMS_ITS | Continuity of Care Document ---
Author Organization [facility] Address [address] [place] [address] Phone Care Team Providers Care Health Facilities Surveyor Name Role Phone Brian Palomo DO Unavailable Unavailable Advance Directives Directive Yes / No Effective Date File Name No Information Encounters Encounter Description Practice Location Reason(s) For Visit Diagnoses Date Provider Providers Copied on Encounter [facility], [address], [place], [place], [id number], [place] tel:[phone] [facility] No Information [facility]rose. [address] [place], [address], [place]. tel:[phone] Referring Provider: Sneha Denny MD, [address], [place], [address]. tel:[phone] Family History Family Member Type Diagnosis Age At Onset No Information Payers Payer name Insurance type Covered green party ID Authoriza tion(s) No Information Social [...]
--- NOTE | 2024-09-05 11:13 | WPDANESEPPF ---
Anes - Initial Pre Proc Eval Procedure: Operation Date: 09/05/24 12:00 Proposed Procedures p Cystoscopy, Right Ureteroscopy, Possible Right Retrograde Pyelogram, Possible Right Ureteral Stent Placement, Possible Holmium Laser Lithotripsy, Stone Extraction - Reggie Jenkins MD Date/Time: 09/05/24 11:13 Surgeon: Reggie Jenkins MD Pre Op Diagnosis: dx r sided kidney stone, back pain Patient Data Age: 64 Gender: F Height: 1.6 m Weight: 60.1 kg Last Vital Signs Temp 36.6 C 09/05/24 07:44 Pulse 80 09/05/24 10:45 Resp 16 09/05/24 10:45 BP 115/68 09/05/24 10:45 Pulse Ox 99 09/05/24 10:45 O2 Del Method Room Air 09/05/24 07:44 Allergies Allergy/AdvReac Type Severity Reaction Status Date / Time Gadolinium-Containing Allergy Severe Hives Verified 09/05/24 07:40 Contrast Medi minocycline Allergy Severe Hives Verified 09/05/24 07:40 tetracycline Allergy Mild HIVES Verified 09/05/24 07:40 Home Medications ?Medication ?Instructions ?Recorded ?Confirmed ?Type ascorbic acid (vitamin C) 1,000 mg 1 gm PO DAILY 04/19/19 07/29/24 History tablet (Vitamin C) hgmcrxxzwpso-adnsfret-envrs acid 1 cap PO DAILY 04/19/19 07/29/24 History 400 mcg-vitamin K 80 mcg capsule (Multi For Her 50 Plus) vitamin E 268 mg (400 unit) capsule 400 unit PO DAILY 04/19/19 07/29/24 History cyanocobalamin (vitamin B-12) 1,000 mcg PO DAILY 12/04/19 07/29/24 History 1,000 mcg tablet (Vitamin B-12) magnesium 1 cap PO DIRECTED PRN 12/04/19 07/29/24 History Constipation cholecalciferol (vitamin D3) 25 25 mcg PO DAILY 12/03/21 07/29/24 History mcg (1,000 unit) capsule zinc gluconate 30 mg tablet 30 mg PO DAILY 12/03/21 07/29/24 History omega-3 1,050 zr-oom-kwk-dpa-fish 1 cap PO BID #60 caps 05/19/23 07/29/24 Rx oil 1,200 mg capsule ([place]-3 2100) lutein 20 mg capsule 20 mg PO DAILY 07/28/23 07/29/24 History estradiol 1 mg tablet 1.5 mg (1.5 x 1 mg) PO DAILY 90 08/17/23 07/29/24 Rx days #135 tabs biotin 10,000 mg PO BID 01/15/24 07/29/24 History alprazolam 0.25 mg tablet 0.25 mg PO BID PRN anxiety #30 tabs 04/09/24 07/29/24 Rx cyclobenzaprine 5 mg tablet 5 mg PO TID PRN muscle spasm #30 06/26/24 07/29/24 Rx tabs bupropion HCl 150 mg 24 hr tablet, See Rx Instructions .Route 07/11/24 07/29/24 Rx extended release .COMPLEX #90 tabs B-complex with vitamin C 1 cap PO DAILY 07/29/24 07/29/24 History fluoxetine 20 mg tablet 20 mg PO DAILY #90 tabs 08/29/24 Rx ondansetron 4 mg disintegrating 4 mg PO Q6H PRN nausea and 09/02/24 Rx tablet vomiting #14 tabs tamsulosin 0.4 mg capsule (Flomax) 0.4 mg PO DAILY #7 caps 09/02/24 Rx tramadol 50 mg tablet 50 mg PO Q6H PRN pain #20 tabs 09/02/24 Rx ciprofloxacin HCl 500 mg tablet 500 mg PO Q12H 5 days #10 tabs 09/04/24 Rx Laboratory Tests 09/05/24 09/05/24 08:00 08:44 WBC 6.1 K/mm3 (4.5-10.0) RBC 3.71 L M/mm3 (4.2-5.4) Hgb 10.9 L g/dL (12.0-15.0) Hct 33.6 L % (37.0-47.0) MCV 90.6 fl (80-100) MCH 29.4 pg (26-34) MCHC 32.4 g/dl (32-36) RDW 14.5 % (11.5-14.5) Plt Count 260 k/mm3 (150-375) MPV 9.3 fl (7.4-10.4) Immature Gran % (Auto) 0.5 % (0-0.5) Neut % (Auto) 55.7 % (45.5-73.1) Lymph % (Auto) 26.9 % (18.3-44.2) [place] % (Auto) 13.1 H % (2.6-8.5) Eos % (Auto) 3.0 % (0-4.4) Baso % (Auto) 0.8 % (0.2-1.2) Lymph # (Auto) 1.63 K/mm3 (0.9-3.2) [place] # (Auto) 0.8 H K/mm3 (0.1-0.6) Eos # (Auto) 0.2 K/mm3 (0-0.3) Baso # (Auto) 0.1 K/mm3 (0.0-0.1) Abs Immat Gran (auto) 0.03 K/mm3 (0.00-0.031) Absolute Neuts (auto) 3.4 K/mm3 (1.3-6.7) Absolute Nucleated RBC 0.000 K/mm3 (0.0-0.012) Nucleated RBC % 0.0 % (0.0-0.2) PT 12.0 Seconds (11.1-14.7) INR 0.9 APTT 25.9 Seconds (22.3-36.8) Sodium 137 mmol/L (137-145) Potassium 4.2 mmol/L (3.4-5.0) Chloride 104 mmol/L (98-107) Carbon Dioxide 24 mmol/L (22-30) Anion Gap 9 mmol/L (4-12) BUN 15 mg/dL (7-17) Creatinine 0.73 mg/dL (0.7-1.0) Estim Creat Clear Calc 54 ml/min Estimated GFR > 60 (59 - ) Glucose 99 mg/dL (65-110) Calcium 8.9 mg/dL (8.4-10.2) Total Bilirubin 0.1 L mg/dL (0.2-1.3) AST 32 U/L (14-36) ALT 29 U/L (6-35) Alkaline Phosphatase 54 U/L (38-126) Total Protein 6.8 g/dL (6.3-8.2) Albumin 3.8 g/dL (3.5-5.1) Urine Color Dark yellow (Yellow) Urine Appearance Cloudy H (Clear) Urine pH 5.0 (5.0-9.0) Ur Specific [place] 1.025 (1.001-1.035) Urine Protein 3+ H mg/dL (Negative) Urine Glucose (UA) Negative mg/dL (Negative) Urine Ketones Trace H mg/dL (Negative) Ur Blood (Man) 3+ H (Negative) Urine Nitrate Negative (Negative) Urine Bilirubin Negative (Negative) Urine Urobilinogen 1.0 mg/dL (<2.0) Leukocyte Esterase Rfl Trace H YUDELKA/UL (Negative) Urine RBC 21-50 H /hpf (0-2) Urine WBC None seen /hpf (0-3) Ur Squamous Epith Cells Few /hpf (Few) Urine Bacteria None seen /hpf Patient hx anesthesia problems: none Family hx anesthesia problems: none Results Review: All pre-operative results and documents have been reviewed as part of the pre-operative evaluation. [facility] Past Medical History Medical History Quit smoking within past year Immunization due Tendonitis of both rotator cuffs Rotator cuff tear, right Left shoulder tendonitis Impingement syndrome of left shoulder Right elbow pain Right shoulder pain Orthopedic aftercare Carpal tunnel syndrome of right wrist Family history of colon cancer in mother Carpal tunnel syndrome of left wrist Tobacco abuse Borderline hypothyroidism History of HPV infection History of vaginal delivery Aftercare following surgery History of endometriosis cyst on ovary Hyperlipidemia Elevated TSH Cervical stenosis of spinal canal Surgical History Surgical History H/O repair of right rotator cuff (~04/01/22) Right shoulder Arthroscopic rotator cuff repair with subacromial decompression, biceps tenodesis History of carpal tunnel release Right wrist 04/19 History of shoulder surgery (~11/2019) History of laparoscopy History of dilation and curettage History of endometrial ablation History of tonsillectomy History of hysterectomy History of back surgery History of discectomy C4-C6 - with Fusion Family History Family History Mother Diabetes mellitus Carcinoma of colon Sibling Diabetes mellitus Family history of lymphoma Father Hypertension Acute myocardial infarction Grandparent Family history of rheumatoid arthritis Acute myocardial infarction Social History Social History Smoking packs per day: 1.5 Smoking cigarettes per day: 30.0 Years smoked: 35 Smoking pack-years: 52.50 Smoking status: Former smoker Tobacco type: cigarettes Second hand tobacco smoke exposure: No Smoking end date: 11/27/21 Alcohol intake: never Drinks per week: 2 Alcohol use details: socially Substance use: never Substance use type: does not use Lack of Transportation: No Lack of Food: Never True Current Housing: I Have Housing Concerned About Future Housing: No Difficulty Paying Gas/Electric Bills: No Difficulty Paying for Meds: No Currently Unemployed: No Education: Trade/Vocational Certificate Difficulty w/ Childcare or Family Care: No Living arrangements: alone Gender identity (if verbalized by the patient): Female Spiritual care concerns: No Anes - Eval Final PreProcedure Day of Procedure 09/05/24 11:13 Patient weight: normal Heart: regular rate and rhythm Lungs: clear to auscultation Airway: Mallampati scale class II Neurological: alert and oriented Last oral intake: >/= 8 hours ASA classification: III Emergent: no Anesthetic plan: proceed Anesthesia type and monitoring: general LMA and standard monitoring Results Review: All pre-operative results and documents have been reviewed as part of the pre-operative evaluation. Informed Consent: The patient's anesthetic plan and its attendant risks and benefits were discussed with the patient/family/POA. Questions were solicited and answers provided to the satisfaction of the patient/family/POA.
[2024-09-05] MEDS: LACTATED RINGERS 1,000 ML 30 ML IV CONT ×2 (11:31→12:28)
[2024-09-05] MEDS: ceFAZolin 2 GM in SODIUM CHLORIDE 0.9% IV 50 ML 100 ML IVPB (11:40)
--- NOTE | 2024-09-05 12:03 | S_PTH ---
PATIENT: Tanja Holman LOC: [facility] U#:[id number] AGE/SX: 64/F ROOM: RE09/05/[address]: Reggie Jenkins MD : 1960 BED: DIS: 09/05/2024 SPEC #: [id number] RECD: 09/06/24 10:29 STATUS: MARTHA REQ #: [id number] MATTHEW: 09/05/24 12:[address]: Reggie Jenkins DEPT: [facility] Surgical RECD BY: Beulah Westfall ENTERED: 09/06/24 10:29 SP TYPE: Surgical OTHR DR: Jeanne Bowden APRN Tissues: A - Stone Procedures: Gross Exam Level 1 Crystalline Analysis
--- NOTE | 2024-09-05 12:04 | W.PM.PROC2 ---
Procedure Note - Detailed Date of Procedure 09/05/24 Pre-op Diagnosis Right ureteral stone Post-op Diagnosis Same Procedure Performed Cystoscopy, right ureteroscopy with stone extraction Surgeon Reggie Jenkins MD Anesthesia General Description of Procedure The patient was brought to the operative suite where she is prepped and draped in a routine sterile fashion while in the dorsal lithotomy position after the uneventful induction of a general LMA anesthetic. A 19F rigid cystoscope was placed in the bladder. The patient had no evidence of urethral stricture or bladder neck contracture. The bladder mucosa was endoscopically normal without hyperemia or neoplasm. There was a single, orthotopic ureteral orifice bilaterally. A 0.035 glidewire was advanced into the right renal pelvis under fluoroscopy. The distal ureter was dilated with an 8F/10F ureteral dilator. Ureteroscopy was undertaken with a short, tapered, semi-rigid ureteroscope and the stone was extracted with ease using a 1.9F Escape disposable stone basket. Due to the ease of this manipulation I opted not to place a ureteral stent. The patient's bladder was emptied and was taken to the recovery room having tolerated this procedure well. Packing No Complications No immediate complications
[2024-09-05] MEDS: ePHEDrine sulfate INJ 50 MG/ML AMPUL 20 MG IV PUSH ×2 (12:13→12:15)
== END 2024-09-05 13:50 | disposition home or self-care (01) ==
LOC: ANHED 09:35 → ANHSURGERY 10:37
PROVIDERS: Emergency Provider Emergency Medicine; PCP Nurse Practitioner Adult Health; Visit Provider Urology
PROC: (CPT 52352; principal; 2024-09-05 12:00)
DX: N20.1 Calculus of ureter (principal); E78.5 Hyperlipidemia, unspecified; E03.9 Hypothyroidism, unspecified; M48.02 Spinal stenosis, cervical region; G56.03 Carpal tunnel syndrome, bilateral upper limbs; N80.9 Endometriosis, unspecified; Z79.891 Long term (current) use of opiate analgesic; Z98.890 Other specified postprocedural states; Z98.891 History of uterine scar from previous surgery; Z98.1 Arthrodesis status; Z87.891 Personal history of nicotine dependence; Z80.0 Family history of malignant neoplasm of digestive organs; Z80.7 Family history of other malignant neoplasms of lymphoid, hematopoietic and related tissues; Z82.49 Family history of ischemic heart disease and other diseases of the circulatory system
CPT/HCPCS: 52352; 36415; 74018; 74176; 74420; 80053; 81001; 82365; 85025; 85610; 85730; 88300; 99199; J0690; C1769; J1100; J1171; J2003; J2250; J2405; J2704; J3010; J7030; J7120

== ENCOUNTER 2024-09-06 11:47 | Outpatient (CLI) | payer BC, SELFPAY ==
--- NOTE | ~2024-09-06 | MM_ITS ---
EXAMINATION: MM screening cecelia BI w anurag HISTORY: Screening mammogram TECHNIQUE: Craniocaudal and mediolateral oblique 3-D tomosynthesis images were obtained and synthetic 2-D images were generated. CAD analysis was submitted and interpreted. COMPARISON: 08/28/2023, 05/26/2022, 04/08/2021, 03/26/2020 BREAST PARENCHYMAL COMPOSITION:Not Dense. There are scattered areas of fibroglandular density. FINDINGS: Suspected more conspicuous mass at the outer, upper left breast, middle depth. Stable paren chymal appearance of the right breast. No suspicious masses or calcifications. IMPRESSION: Suspected more conspicuous mass at the upper, outer left breast. Spot compression views and possibly ultrasound are recommended for further evaluation. BI-RADS Category 0: Incomplete: Needs additional imaging evaluation. Reviewed, dictated and finalized at [facility]. IMPRESSION: Suspected more conspicuous mass at the upper, outer left breast. Spot compressi on views and possibly ultrasound are recommended for further evaluation. BI-RADS Category 0: Incomplete: Needs additional imaging evaluation.
--- OUTSIDE RECORDS SUMMARY | 2024-09-06 11:52 | XMS_ITS | Continuity of Care Document ---
Author Organization [facility] Address [address] [place] [address] Phone Care Team Providers Care Billet Assembler Name Role Phone Brian Palomo DO Unavailable Unavailable Advance Directives Directive Yes / No Effective Date File Name No Information Encounters Encounter Description Practice Location Reason(s) For Visit Diagnoses Date Provider Providers Copied on Encounter [facility], [address], [place], [place], [id number], [place] tel:[phone] [facility] No Information [facility]rose. [address] [place], [address], [place]. tel:[phone] Referring Provider: Sneha Denny MD, [address], [place], [address]. tel:[phone] Family History Family Member Type Diagnosis Age [...]
--- OUTSIDE RECORDS SUMMARY | 2024-09-06 11:52 | XMS_ITS | Referral Summary ---
Author Organization [facility] Address [address] [facility] [address] [place] [address] Phone Care Team Providers Care Sheet Music Salesperson Name Role Phone No, Physician Primary Care Provider [phone] Allergies No known active allergies Medications No known medications Active Problems No known active problems Social History Tobacco Use Types Packs/Day Years Used Date Smoking Tobacco: Never Assessed Personal Safety Answer Date Recorded Getting School Help Needed Not on file 05/01 Comments Unknown Sex and Gender Information Value Date Recorded Sex Assigned at Not on file 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 Care Teams Sheet Music Salesperson Relationship Specialty Start Date End Date No, Physician PCP - General 05/13/22
--- OUTSIDE RECORDS SUMMARY | 2024-09-06 11:52 | XMS_ITS | Clinical Summary ---
Author Organization [facility] [place] Address [address] [place] [address] Phone Care Team Providers Care Acting Manager Name Role Phone Sneha Denny MD Primary Care Provider [phone] Allergies Active Allergy Reactions Criticality Noted Date [...] 6 Tablets 40 Tablet 04/22/2019 1:14 PM [facility] 0 Active docusate sodium (Colace) 100 mg capsule Take 1 Capsule (100 mg) by mouth 2 times daily. 60 Capsule 6 04/22/2019 1:14 PM [facility] 0 Active Social History Tobacco Use Types Packs/Day Years Used Date Smoking Tobacco: Every Day Smokeless Tobacco: Never Comments:1-3 daily Alcohol Use Standard Drinks/Week Comments Yes 0 (1 standard drink = 0.6 oz pur e alcohol) weekends Comments No Sex and Gender Information Value Date Recorded Sex Assigned at Not on file Legal Sex Female 3:29 AM [facility] Gender Identity Not on file Sexual Orientation Not on file Last Filed Vital Signs Vital Sign Reading Time Taken Comments Blood Pressure 132/75 04/22/2019 1:35 PM [facility] Pulse 97 04/22/2019 1:35 PM [facility] Temperature 36.8 C (98.2 F) 04/22/2019 12:54 PM [facility] Respiratory Rate 17 04/22/2019 12:40 PM [facility] Oxygen Saturation 93% 04/22/2019 1:35 PM [facility] Inhaled Oxygen Concentration - - Weight 70.3 kg (155 lb) 04/22/2019 6:02 AM [facility] Height 160 cm (5' 3) 04/22/2019 6:02 AM [facility] Body Mass Index 27.46 04/22/2019 6:02 AM [facility] Plan of Treatment Health Maintenance Due Date [...] series) 2033 Medical Devices Implanted Type Area Photographic Process Attendant Device Identifier Shelf Expiration Date Model / Serial / Lot Hemostatic Surgiflo 8ml W/Thrombin 2994 - [id number] Implanted:Qty : 1 on 04/22/2019 by Nitesh Foss MD at [facility] Hemostatic N/A: Spine Cervical Anterior [employer] 01/27/2020 [id number] / / [id number] Plate Atlnts Trnsltnl Acs 40.0mm [id number] - [id number] Implanted:Qty : 1 on 04/22/2019 by Nitesh Foss MD at [facility] Plate N/A: Spine Cervical Anterior [employer] [id number] / / Description:STERILIZATION # [id number] [place] 4.0x15mm [id number] - [id number] Implanted:Qty : 6 on 04/22/2019 by Nitesh Foss MD at [facility] N/A: Spine Cervical Anterior [employer] [id number] / / Description:STERILIZATION # 200 [id number] APR 16 REQ#[id number] Paste Bone Dbm Plus 1ml [id number] - [id number] Implanted:Qty : 1 on 04/22/2019 by Nitesh Foss MD at [facility] N/A: Spine Cervical Anterior [employer] 01/12/2020 [id number] / [id number] / Description:REQ [id number] Bone Block Lascr [id number] - [id number] Implanted:Qty : 1 on 04/22/2019 by Nitesh Foss MD at [facility] N/A: Spine Cervical Anterior [employer] 07/25/2021 [id number] / [id number] / [id number] Description:REQ#[id number] Bone Block Lascr [id number] - [id number] Implanted:Qty : 1 on 04/22/2019 by Nitesh Foss MD at [facility] N/A: Spine Cervical Anterior [employer] 12/12/2021 [id number] / [id number] / [id number] Insurance RX [facility] [employer] Advance Directives For more information, please contact: [phone] * Full Code (Latest Code Status on File) Date Activated Date Inactivated Comments 04/22/2019 6:38 AM 04/22/2019 4:36 PM Care Teams Acting Manager Relationship Specialty Start Date End Date Sneha Denny MD [address] [address] PCP - General 02/13/15
--- OUTSIDE RECORDS SUMMARY | 2024-09-06 11:52 | XMS_ITS | Clinical Summary ---
Author Organization [facility] Address [address] [place] [address] Phone Care Team Providers Care Kidney Trimmer Name Role Phone No, Physician Primary Care Provider [phone] Allergies No known active allergies Medications No known medications Active Problems No known active problems Social History Tobacco Use Types Packs/Day Years Used Date Smoking Tobacco: Never Assessed Personal Safety Answer Date Recorded Getting School Help Needed Not on file 05/01 Comments Unknown Sex and Gender Information Value Date Recorded Sex Assigned at Not on file 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
== END 2024-09-06 11:48 | disposition home or self-care (01) ==
PROVIDERS: PCP Nurse Practitioner Adult Health; Visit Provider Nurse Practitioner Adult Health
DX: Z12.31 Encounter for screening mammogram for malignant neoplasm of breast (principal); R92.8 Other abnormal and inconclusive findings on diagnostic imaging of breast
CPT/HCPCS: 77063; 77067

== ENCOUNTER 2024-09-20 08:51 | Outpatient (CLI) | payer BC, SELFPAY ==
--- NOTE | ~2024-09-20 | MMUS_ITS ---
EXAMINATION: MM diagnostic cecelia LT w anurag, US breast LT complete HISTORY: Follow-up left breast asymmetries. TECHNIQUE: Additional 3-D tomosynthesis images of the left breast were performed and synthetic 2-D im ages were generated. CAD analysis was submitted and interpreted. High resolution complete left breast ultrasound was performed. COMPARISON: Comparison to multiple prior studies sequentially, with oldest reviewed study dated 03/26. BREAST PARENCHYMAL COMPOSITION: Not dense: There are scattered areas of fibroglandular density. FINDINGS: MAMMOGRAPHIC FINDINGS: There are small obscured masses in the upper outer quadrant of the left breast, middle third. There a re no suspicious calcifications or architectural distortion. ULTRASOUND: Complete US of all 4 quadrants of the left breast/s and retroareolar region was reviewed. At 1:00, 5 cm from the nipple there are 2 adjacent cysts measuring 5 mm. There are mildly prominent ducts at 4:0 0 and 2:00. No suspicious sonographic abnormalities to suggest malignancy. IMPRESSION: 1. No evidence for malignancy in the left breast. Benign findings. 2. Routine yearly screening mammogram and regular clinical breast examination are recommended. BI-RADS Category 2: Benign finding(s). Reviewed, dictated and finalized at location A. IMPRESSION: 1. No evidence for malignancy in the left breast. Benign findings. 2. Routine yearly screening mammogram and regular clinical breast examination a re recommended. BI-RADS Category 2: Benign finding(s).
--- OUTSIDE RECORDS SUMMARY | 2024-09-20 08:55 | XMS_ITS | Clinical Summary ---
Author Organization [facility] Address [address] [place] [address] Phone Care Team Providers Care Commercial Insulator Name Role Phone No, Physician Primary Care Provider [phone] Allergies No known active allergies Medications No known medications Active Problems No known active problems Social History Tobacco Use Types Packs/Day Years Used Date Smoking Tobacco: Never Assessed Personal Safety Answer Date Recorded Getting School Help Needed Not on file 05/01 Comments Unknown Sex and Gender Information Value Date Recorded Sex Assigned at Not on file Legal Sex Female 6:19 AM 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
--- OUTSIDE RECORDS SUMMARY | 2024-09-20 08:55 | XMS_ITS | Clinical Summary ---
Author Organization [facility] Address [address] [place] [address] Phone Care Team Providers Care Corking Machine Operator Name Role Phone Sneha Denny MD Primary Care Provider [phone] Allergies Active Allergy Reactions Criticality Noted Date [...] 6 Tablets 40 Tablet 04/22/2019 1:14 PM HEALTH TYPE TECHNICIAN 0 Active docusate sodium (Colace) 100 mg capsule Take 1 Capsule (100 mg) by mouth 2 times daily. 60 Capsule 6 04/22/2019 1:14 PM HEALTH TYPE TECHNICIAN 0 Active Social History Tobacco Use Types Packs/Day Years Used Date Smoking Tobacco: Every Day Smokeless Tobacco: Never Comments:1-3 daily Alcohol Use Standard Drinks/Week Comments Yes 0 (1 standard drink = 0.6 oz pur e alcohol) weekends Comments No Sex and Gender Information Value Date Recorded Sex Assigned at Not on file Legal Sex Female 3:29 AM HEALTH TYPE TECHNICIAN Gender Identity Not on file Sexual Orientation Not on file Last Filed Vital Signs Vital Sign Reading Time Taken Comments Blood Pressure 132/75 04/22/2019 1:35 PM HEALTH TYPE TECHNICIAN Pulse 97 04/22/2019 1:35 PM HEALTH TYPE TECHNICIAN Temperature 36.8 C (98.2 F) 04/22/2019 12:54 PM HEALTH TYPE TECHNICIAN Respiratory Rate 17 04/22/2019 12:40 PM HEALTH TYPE TECHNICIAN Oxygen Saturation 93% 04/22/2019 1:35 PM HEALTH TYPE TECHNICIAN Inhaled Oxygen Concentration - - Weight 70.3 kg (155 lb) 04/22/2019 6:02 AM HEALTH TYPE TECHNICIAN Height 160 cm (5' 3) 04/22/2019 6:02 AM HEALTH TYPE TECHNICIAN Body Mass Index 27.46 04/22/2019 6:02 AM HEALTH TYPE TECHNICIAN Plan of Treatment Health Maintenance Due Date [...] series) 2033 Medical Devices Implanted Type 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 Device Identifier Shelf Expiration Date Model / Serial / Lot Hemostatic Surgiflo 8ml W/Thrombin 2994 - [id number] Implanted:Qty : 1 on 04/22/2019 by Nitesh Foss MD at [facility] Hemostatic N/A: Spine Cervical Anterior [employer] 01/27/2020 2994 / / [id number] Plate Atlnts Trnsltnl Acs 40.0mm [id number] - [id number] Implanted:Qty : 1 on 04/22/2019 by Nitesh Foss MD at [facility] Plate N/A: Spine Cervical Anterior [employer] [id number] / / Description:STERILIZATION # [id number] [place] 4.0x15mm [id number] - [id number] Implanted:Qty : 6 on 04/22/2019 by Nitesh Foss MD at [facility] N/A: Spine Cervical Anterior [employer] [id number] / / Description:STERILIZATION # 200 [id number] APR 16 REQ#[id number] Paste Bone Dbm Plus 1ml [id number] - [id number] Implanted:Qty : 1 on 04/22/2019 by Nitesh Foss MD at [facility] N/A: Spine Cervical Anterior [employer] 01/12/2020 [id number] / [id number] / Description:REQ [id number] Bone Block Lascr [id number] - [id number] Implanted:Qty : 1 on 04/22/2019 by Nitesh Foss MD at [facility] N/A: Spine Cervical Anterior [employer] 07/25/2021 [id number] / [id number] / [id number] Description:REQ#[id number] Bone Block Lascr [id number] - [id number] Implanted:Qty : 1 on 04/22/2019 by Nitesh Foss MD at [facility] N/A: Spine Cervical Anterior [employer] 12/12/2021 [id number] / [id number] / [id number] Insurance RX [facility] [employer] Advance Directives For more information, please contact: [phone] * Full Code (Latest Code Status on File) Date Activated Date Inactivated Comments 04/22/2019 6:38 AM 04/22/2019 4:36 PM Care Teams Corking Machine Operator Relationship Specialty Start Date End Date Sneha Denny MD [address] [address] PCP - General 02/13/15
--- OUTSIDE RECORDS SUMMARY | 2024-09-20 08:55 | XMS_ITS | Referral Summary ---
Author Organization [facility] Address [address] [facility] [address] [place] [address] Phone Care Team Providers Care Supervisor Powder And Primer Canning Name Role Phone No, Physician Primary Care Provider [phone] Allergies No known active allergies Medications No known medications Active Problems No known active problems Social History Tobacco Use Types Packs/Day Years Used Date Smoking Tobacco: Never Assessed Personal Safety Answer Date Recorded Getting School Help Needed Not on file 05/01 Comments Unknown Sex and Gender Information Value Date Recorded Sex Assigned at Not on file Legal Sex 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
== END 2024-09-20 08:52 | disposition home or self-care (01) ==
LOC: CHSIMG 08:51
PROVIDERS: PCP Nurse Practitioner Adult Health; Visit Provider Nurse Practitioner Adult Health
DX: R92.8 Other abnormal and inconclusive findings on diagnostic imaging of breast (principal)
CPT/HCPCS: 76641; 77061; 77065; G0279